=== PATIENT | female | born 1950 | race Caucasian/White ===

== ENCOUNTER 2018-07-30 06:50 | Day surgery (SDC) | payer OTHER ==
[~2018-07-30] VITALS: Ht 162.6 cm; Wt 100.8 kg
[~2018-07-30 06:50] MED LIST: ALBU90OI INH; ALBU90OI61 INH; ARIP15 PO; ASPI81EC PO; CEPH500 PO; CITRACAL-VIT D1 EAC1 PO; FISH OIL 500 M1 EAC2 PO; FISH1000 PO; HYDACE5 PO; HYDACE5325 PO; IBUP600 PO; Istalol2.5 ML BOTHEYES; LEVSOD100 PO; LORA1 PO; METCAR500 PO; PRAV10 PO; PRAV20 PO; THYROID; VITAMIN D31000 UNIT PO; WOMEN'S DAILY1 EAC3 PO; [UNRECOGNIZED DRUG - REMARK] PO
--- NOTE | 2018-07-30 08:22 | NUR ---
07/30/18 0822 Josee Mathias O2 10L VIA POM MASK
== END 2018-07-30 09:13 | disposition home or self-care (01) ==
LOC: ORSCSDS 06:50
PROVIDERS: Surgery
PROC: 0DBP8ZX Excision of Rectum, Via Natural or Artificial Opening Endoscopic, Diagnostic (ICD-10-PCS; principal; 2018-07-30 08:00)
PROC: 3E0H8GC Introduction of Other Therapeutic Substance into Lower GI, Via Natural or Artificial Opening Endoscopic (ICD-10-PCS; principal; 2018-07-30 08:00)
PROC: 0DBN8ZX Excision of Sigmoid Colon, Via Natural or Artificial Opening Endoscopic, Diagnostic (ICD-10-PCS; principal; 2018-07-30 08:00)
PROC: 0DB58ZX Excision of Esophagus, Via Natural or Artificial Opening Endoscopic, Diagnostic (ICD-10-PCS; principal; 2018-07-30 08:00)
DX: K22.70 Barrett's esophagus without dysplasia (principal); K21.9 Gastro-esophageal reflux disease without esophagitis; Z12.11 Encounter for screening for malignant neoplasm of colon; Z86.010 Personal history of colon polyps; K63.5 Polyp of colon; K62.1 Rectal polyp; K57.30 Diverticulosis of large intestine without perforation or abscess without bleeding; G47.33 Obstructive sleep apnea (adult) (pediatric); J45.909 Unspecified asthma, uncomplicated; E66.01 Morbid (severe) obesity due to excess calories; Z68.38 Body mass index [BMI] 38.0-38.9, adult; Z79.899 Other long term (current) drug therapy
CPT/HCPCS: 88305; J0461; J2250; J2405; J2704; J7120

== ENCOUNTER 2020-03-05 18:57 | Inpatient (IN) | payer OTHER ==
[~2020-03-05] VITALS: Ht 162.6 cm; Wt 110.0 kg
[~2020-03-05 18:57] MED LIST changes: +GLUC500 PO; +HYDROCODONE-AC1 EAC1 PO; +OMEP20ER PO
[2020-03-05 20:09] LABS: BASOPHILS ABSOLUTE AUTO 0.02 K/mm3 (0.00-0.23); BASOPHILS PERCENT AUTO 0 % (0-2); EOSINOPHILS PERCENT AUTO 0 % (0-6); Hematocrit 37.8 % (33.0-51.0); Hemoglobin 12.3 g/dL (11.5-16.0); IMMATURE GRAN ABSOLUTE AUTO 0.07 K/mm3 (0.00-0.10); IMMATURE GRAN PERCENT AUTO 0 % (0-1); LYMPHOCYTES ABSOLUTE AUTO 1.46 K/mm3 (0.84-5.20); LYMPHOCYTES PERCENT AUTO 9 % (21-46); MONOCYTES ABSOLUTE AUTO 0.96 K/mm3 (0.16-1.47); MONOCYTES PERCENT AUTO 6 % (4-13); Mean Corpuscular HGB 27.2 pg (26.0-34.0); Mean Corpuscular HGB Conc 32.5 g/dL (31.5-36.5); Mean Corpuscular Volume 84 fL (80-100); Mean Platelet Volume 10.2 fL (9.1-12.4); NEUTROPHILS ABSOLUTE AUTO 13.69 K/mm3 (1.96-9.15); NEUTROPHILS PERCENT AUTO 85 % (41-73); Platelet Count 239 K/mm3 (150-400); RDW Coefficient Variation 23.2 % (11.7-14.2); RDW Standard Deviation 67.7 fL (35.1-46.3); Red Blood Cell Count 4.52 M/mm3 (3.80-5.20)
[2020-03-05 20:23] LABS: Alanine Aminotransfer (ALT/SGP 61 U/L (12-78); Albumin, Blood 2.1 g/dL (3.4-5.0); Albumin/Globulin Ratio 0.5 (0.8-1.8); Alk Phos 231 U/L (50-136); Anion Gap 8 mmol/L (6-16); Aspartate Aminotrans (AST/SGOT 47 U/L (12-37); Bilirubin, Total 2.5 mg/dL (0.1-1.0); Blood Urea Nitrogen 14 mg/dL (8-24); Bun/Creatinine Ratio 11.8 (12.0-20.0); CO2, Blood 25 mmol/L (21-32); Calcium, Blood 7.3 mg/dL (8.5-10.1); Chloride, Blood 105 mmol/L (98-108); Creatinine, Blood 1.19 mg/dL (0.40-1.00); Glomerular Filtration Rate 48 (60-); Glucose, Blood 123 mg/dL (70-99); Potassium, Blood 3.9 mmol/L (3.5-5.5); Sodium, Blood 138 mmol/L (136-145); Total Protein, Blood 6.1 g/dL (6.4-8.2)
[2020-03-05 20:40] LABS: Magnesium, Blood 1.8 mg/dL (1.6-2.4); Troponin I <0.015 ng/mL (0.000-0.040)
[2020-03-05 20:49] LABS: Source, Urine Clean Catch
[2020-03-05 20:51] LABS: Bilirubin, Urine Neg (Neg); Blood, Urine 1+ (Neg); Glucose Qualitative, Urine Neg (Neg); Ketones, Urine 1+ (Neg); Leukocyte Esterase, Urine 3+ (Neg); Nitrite, Urine Neg (Neg); Protein, Urine Neg (Neg); Specific Gravity, Urine 1.015 (1.003-1.022); Urobilinogen, Urine 1+ (Normal)
[2020-03-05 20:57] LABS: Appearance, Urine Clear (Clear); Color, Urine Yellow (P-Yellow)
[2020-03-05 20:58] LABS: Bacteria Not Seen /hpf; Red Blood Cells, Urine Not Seen /hpf (0-2); Renal Epithelial Few /hpf (0-Rare); Squamous Epithelial Cells Few /hpf (Few); Transitional Epithelial Cells Few /hpf (0-Rare)
--- NOTE | 2020-03-06 01:00 | NUR ---
ASSUMED PT CARE FROM ED AT 0017 PT ARRIVED ON UNIT ALERT AND ORIENTED AND ABLE TO MAKE HER NEEDS KNOWN. CURRENTLY RECEIVING THIRD LITER OF LR AND CEFEPIME. PT APPEARS VERY LETHARGIC AND PALE. PT NOTED TO BE NSR WITH PVC'S; HR 90'S. BP'S STABLE WHILE RECEIVING FLUIDS; HOWEVER, ONCE STOPPED SBP NOTED TO DROP TO 90'S; WILL CONTINUE TO MONITOR. PT HAS SEVERE SWELLING TO BLE'S IN WHICH SHE STATES IS NOT NEW AND HAS BEEN THAT WAY SINCE HER PANCREAS SURGERY. PT IS CONTINENT OF BOWEL AND BLADDER; UTILIZES BED YOUSSEF. CALL LIGHT WITHIN REACH.
--- NOTE | 2020-03-06 01:56 | NUR ---
DR. ROWELL CALLED REGARDING LOW BP'S; NEW ORDERS TO START LEVOPHED PERIPHERALLY.
--- NOTE | 2020-03-06 06:26 | NUR ---
END OF SHIFT SUMMARY PT REMAINS ALERT AND ORIENTED AND ABLE TO MAKE NEEDS KNOWN. LEVOPHED CONTINUES TO INFUSE PERIPHERALLY THROUGH AN 18G TO LEFT AC REGION; CONTINUES WITH GOOD BLOOD RETURN. LR INFUSING VIA 20G LEFT AC AT 150MLS/HR. PT REMAINS CONTINENT AND IS ASSISTED WITH BEDPAN. PT C/O 4/10 HEADACHE PAIN; MEDICATED WITH FENTANYL PER ORDERS. PT RESTING COMFORTABLY WITH CALL LIGHT IN REACH. WILL CONTINUE TO MONITOR UNTIL REPORT IS HANDED OFF TO ONCOMING RN.
--- NOTE | 2020-03-06 07:15 | NUR ---
Assumed care of pt at 0700. Bedside report received from Deana TRAN. Pt A&O x 4. Answers questions. Follows commands. Verbalizes needs. Pt pleasant and cooperative with care. Lethargic. Repositions L/R with verbal cues and minimal assist. Pt has levophed at 10 mcg/min through peripheral IV. IV assessment WNL, draws back blood. Pt on room air. SpO2 90% or greater. SR per monitor. Pt has red coccyx with a stage 2 pressure ulcer. Site cleaned and dressed with pink foam dressing. Photographs obtained and placed in chart. Non blanchable redness noted to right heel. Protective mepilex placed.
[2020-03-06 07:23] LABS: BASOPHILS ABSOLUTE AUTO 0.03 K/mm3 (0.00-0.23); BASOPHILS PERCENT AUTO 0 % (0-2); EOSINOPHILS PERCENT AUTO 0 % (0-6); Hematocrit 30.9 % (33.0-51.0); Hemoglobin 10.3 g/dL (11.5-16.0); IMMATURE GRAN ABSOLUTE AUTO 0.08 K/mm3 (0.00-0.10); IMMATURE GRAN PERCENT AUTO 1 % (0-1); LYMPHOCYTES ABSOLUTE AUTO 1.83 K/mm3 (0.84-5.20); LYMPHOCYTES PERCENT AUTO 13 % (21-46); MONOCYTES ABSOLUTE AUTO 0.72 K/mm3 (0.16-1.47); MONOCYTES PERCENT AUTO 5 % (4-13); Mean Corpuscular HGB 27.6 pg (26.0-34.0); Mean Corpuscular HGB Conc 33.3 g/dL (31.5-36.5); Mean Corpuscular Volume 83 fL (80-100); Mean Platelet Volume 9.8 fL (9.1-12.4); NEUTROPHILS PERCENT AUTO 81 % (41-73); Platelet Count 193 K/mm3 (150-400); RDW Coefficient Variation 23.1 % (11.7-14.2); RDW Standard Deviation 67.1 fL (35.1-46.3); Red Blood Cell Count 3.73 M/mm3 (3.80-5.20); White Blood Cell Count 13.96 K/mm3 (4.00-11.30)
[2020-03-06 07:40] LABS: Albumin, Blood 1.4 g/dL (3.4-5.0); Albumin/Globulin Ratio 0.5 (0.8-1.8); Bilirubin, Total 2.6 mg/dL (0.1-1.0); Bun/Creatinine Ratio 13.3 (12.0-20.0); Calcium, Blood 6.7 mg/dL (8.5-10.1); Creatinine, Blood 1.05 mg/dL (0.40-1.00); Globulin, Blood 3.1 g/dL (2.2-4.0); Potassium, Blood 3.7 mmol/L (3.5-5.5); Total Protein, Blood 4.5 g/dL (6.4-8.2)
[2020-03-06 11:10] LABS: Source, Urine Catheter
[2020-03-06 11:20] LABS: Appearance, Urine Clear (Clear); Bilirubin, Urine Neg (Neg); Blood, Urine 3+ (Neg); Color, Urine Yellow (P-Yellow); Glucose Qualitative, Urine Neg (Neg); Ketones, Urine Neg (Neg); Leukocyte Esterase, Urine 3+ (Neg); Nitrite, Urine Neg (Neg); Protein, Urine Neg (Neg); Urobilinogen, Urine NORM (Normal)
--- NOTE | 2020-03-06 12:00 | NUR ---
Pt has PICC line to SHERLY for vasopressor administration. Levophed now 15 mcg/min. Dr Jung and Dr Rose in to see pt. Discussed increased vasopressor requirement. High catheter placed for strict measurement of I&O. CT scan done and resulted. New orders placed by Dr Rose for lovenox.
[2020-03-06 12:04] LABS: Bacteria Few /hpf; Renal Epithelial Few /hpf (0-Rare); Squamous Epithelial Cells Few /hpf (Few); Transitional Epithelial Cells Mod /hpf (0-Rare)
--- NOTE | 2020-03-06 17:00 | NUR ---
Calf cirumference measurement: L- 15.5 inches R- 14.5 inches Pt was laying on left side, so left leg may be larger due to dependent edema.
--- NOTE | 2020-03-06 17:47 | NUR ---
Echocardiogram completed.
--- NOTE | 2020-03-06 18:44 | NUR ---
SUMMARY Pt remains A&O x 4, but lethargic. Pt did not get OOB this shift. Pt's granddaughter visited briefly, she was updated on plan of care by Dr Rose. Pt on room air. SpO2 90% or greater. Lungs clear t/o. SR per monitor with episodes of tachycardia that last 10-15 seconds and resolve spontaneously. Dr Rose aware. Echocardiogram obtained. Levophed at 15 mcg/min. Attempted to titrated down to 13 mcg/min but this resulted in unacceptable BP. PICC line new this shift. High catheter placed for strict measurement of I&O. DIONNA hose ordered but did not place because pt is highly sensitive to pressure injury and has a stage one pressure ulcer to R heel.
--- NOTE | 2020-03-06 19:18 | NUR ---
ASSUMED PT CARE FROM CHELSEA STANFORD PT SLEEPING IN BED, EASILY AROUSABLE; ABLE TO MAKE NEEDS KNOWN. LEVOPHED INFUSING AT 15MCG/MIN, AND LR AT 150MLS/HR. MEDINA CATHETER IS PATENT AND DRAINING DARK, YELLOW URINE TO GRAVITY. CALL LIGHT WITHIN REACH; PT ABLE TO MAKE HER NEEDS KNOWN.
--- NOTE | 2020-03-06 20:50 | NUR ---
DR. JENSEN CALL PLACED REGARDING LEVOPHED AT 17MCG/MIN WITH SBP 90'S; NEW ORDERS FOR VASOPRESSIN. ALSO REQUESTED ANTIFUNGAL CREAM FOR REDNESS TO SAMANTA/ANAL AREA.
--- NOTE | 2020-03-06 22:46 | NUR ---
REASSESSMENT PT CONTINUES TO ASK FOR BEDPAN. THIRD LARGE CARRILLO/LAMBERT STOOL NOTED THIS SHIFT. C/O NAUSEA; MEDICATED WITH ZOFRAN PER ORDERS. PT STATES SHE DOESN'T FEEL GOOD. ASKED IF SHE GENERALLY POOPS THIS MUCH HOME, PT STATED "NO". RHYTHM CHANGE NOTED AT APPROXIMATELY 2200; OBTAINED EKG. EKG SHOWING SINUS ARRHYTHMIA; HOWEVER, DIFFICULT TO DISTINGUISH WAP D/T PT NOT HOLDING COMPLETELY STILL. P WAVES APPEAR DIFFERENT AT TIMES; WILL CONTINUE TO MONITOR. HR WAS LOW 42; HOWEVER, FLUCTUATES AND INCREASES UP TO 110.
--- NOTE | 2020-03-07 04:40 | NUR ---
END OF SHIFT SUMMARY PT HAS REMAINED ON LEVOPHED T/O SHIFT; CURRENTLY AT 12MCG/MIN. VASOPRESSIN CURRENTLY TITRATED OFF; HOWEVER, WAS ALSO ON VASOPRESSIN FOR MAJORITY OF SHIFT WELL. LR INFUSING AT 150MLS/HR. PICC TO RIGHT UPPER ARM. PT NOTED TO HAVE FREQUENT BOWEL MOVEMENTS THIS SHIFT; ALL DIFFERENT COLORS, TEXTURES, AND SMELLS. BOWEL TONES WERE HYPOACTIVE AT START OF SHIFT, BECAME TYMPANIC, AND ARE NOW HYPERACTIVE. PT WAS CONTINENT FOR ALL OF THEM EXCEPT THE LAST ONE. SAMANTA CARE AND SKIN CARE GIVEN WITH EACH BM. PT IS VERY TENDER AND SENSITIVE TO THE TOUCH. SHE C/O BARRIER CREAM BURNING; THEREFORE, CLEANSED OFF AND APPLIED ANTIFUNGAL CREAM INSTEAD PER ORDERS. RED AREA IS APPEARING RECREATION PROFESSOR IN COLOR TO PERIANAL AREA. MEPITEL REMAINS IN PLACE TO COCCYX R/T OPEN AREA AND SURROUNDING RED/HIGH RISK AREAS. C/O OVERALL "NOT FEELING WELL". WAS NAUSEAS X1 THIS SHIFT; MEDICATED WITH ZOFRAN. VSS, SEE FLOWSHEET. PT NOTED TO HAVE A RHYTHM CHANGE AND WAS BRADYCARDIC WITH HR 30-40'S; ASYMPTOMATIC; HOWEVER, EKG OBTAINED SHOWING SINUS ARRHYTHMIA. HOWEVER, ONCE PT WAS SLEEPING AND NOT MOVING; CARDIAC MONITORED SHOWED WANDERING ATRIAL PACEMAKER; THEREFORE, STRIP OBTAINED AND PLACED IN CHART. RHYTHM REMAINS IRREGULAR WITH NOTED WANDERING ATRIAL PACEMAKER. RATE VARIES FROM 40-90'S. PT CONTINUES TO APPEAR PALE AND DUSKY IN COLOR. DEEP PITTING EDEMA TO LLE AND +3 TO RLE. HEEL PROTECTOR IN PLACE TO RIGHT HEEL; HOWEVER, PT HELPS REPOSITION WITH HER LEFT; THEREFORE, PROTECTOR ROLLED OFF. HEELS ARE FLOATED ON A PILLOW. PT HAS REMAINED ON ROOM AIR WITH A COUPLE EPISODES OF SPO2 DROPPING TO 85%; HOWEVER, PT RECOVERS QUICKLY AND NO OXYGEN WAS NEEDED. PT REMAINS LETHARGIC AND DROWSY. WILL CONTINUE TO MONITOR UNTIL REPORT IS HANDED OFF TO ONCOMING RN.
[2020-03-07 06:46] LABS: BASOPHILS ABSOLUTE AUTO 0.02 K/mm3 (0.00-0.23); BASOPHILS PERCENT AUTO 0 % (0-2); EOSINOPHILS ABSOLUTE AUTO 0.02 K/mm3 (0.00-0.68); EOSINOPHILS PERCENT AUTO 0 % (0-6); Hematocrit 28.5 % (33.0-51.0); Hemoglobin 9.5 g/dL (11.5-16.0); IMMATURE GRAN ABSOLUTE AUTO 0.04 K/mm3 (0.00-0.10); IMMATURE GRAN PERCENT AUTO 0 % (0-1); LYMPHOCYTES ABSOLUTE AUTO 2.37 K/mm3 (0.84-5.20); LYMPHOCYTES PERCENT AUTO 26 % (21-46); MONOCYTES ABSOLUTE AUTO 0.61 K/mm3 (0.16-1.47); MONOCYTES PERCENT AUTO 7 % (4-13); Mean Corpuscular HGB 27.5 pg (26.0-34.0); Mean Corpuscular HGB Conc 33.3 g/dL (31.5-36.5); Mean Corpuscular Volume 83 fL (80-100); NEUTROPHILS ABSOLUTE AUTO 6.19 K/mm3 (1.96-9.15); NEUTROPHILS PERCENT AUTO 67 % (41-73); Platelet Count 180 K/mm3 (150-400); RDW Coefficient Variation 23.5 % (11.7-14.2); RDW Standard Deviation 67.7 fL (35.1-46.3); Red Blood Cell Count 3.45 M/mm3 (3.80-5.20); White Blood Cell Count 9.25 K/mm3 (4.00-11.30)
[2020-03-07 06:54] LABS: Alanine Aminotransfer (ALT/SGP 42 U/L (12-78); Albumin, Blood 1.3 g/dL (3.4-5.0); Albumin/Globulin Ratio 0.5 (0.8-1.8); Alk Phos 163 U/L (50-136); Anion Gap 8 mmol/L (6-16); Aspartate Aminotrans (AST/SGOT 42 U/L (12-37); Bilirubin, Total 2.2 mg/dL (0.1-1.0); Blood Urea Nitrogen 12 mg/dL (8-24); CO2, Blood 25 mmol/L (21-32); Calcium, Blood 6.7 mg/dL (8.5-10.1); Chloride, Blood 110 mmol/L (98-108); Creatinine, Blood 0.92 mg/dL (0.40-1.00); Globulin, Blood 2.7 g/dL (2.2-4.0); Glomerular Filtration Rate >60 (60-); Glucose, Blood 220 mg/dL (70-99); Potassium, Blood 3.3 mmol/L (3.5-5.5); Sodium, Blood 143 mmol/L (136-145)
[2020-03-07 09:06] LABS: Free Thyroxine 1.03 ng/dL (0.70-1.60)
[2020-03-07 09:11] LABS: Triiodothyronine, Free <0.50 pg/mL (2.18-3.98)
--- NOTE | 2020-03-07 09:49 | NUR ---
ASSUMED CARE OF PT, REPORT RCV'D FROM CHELSEA TEIXEIRA. PT ALERT AND ORIENTED WITH SHORT PERIODS OF CONFUSION. PT FORGETS WHY SHE IS IN THE HOSPITAL AND NEEDS TO BE REORIENTED. PT COMPLAINS OF NAUSEA, REFUSES BREAKFAST AND PO MEDICATIONS AT THIS TIME. PT MEDICATED WITH ZOFRAN WITH MODERATE IMPROVEMENT IN NAUSEA. PT HAD VENOUS DUPLEX SCAN THIS AM, POSITIVE FOR DVTX2 RLE. CALL TO DR. Monico REDDY TO REPORT FINDINGS. PT REMAINS ON LEVOPHED 5MCG/MIN, VASOPRESSIN @ 0.04 UNITS/MIN. BP STABLE AT THIS TIME. LUNG SOUNDS CLEAR, PT REMAINS ON 2L NC D/T OCCASIONAL DESATS WHILE SLEEPING. TEMP MEDINA PATENT AND DRAINING TO GRAVITY. MEPITEL TO COCCYX, CHANGED ON NOC SHIFT, RIGHT HEEL PROTECTOR IN PLACE. REPOSITIONING Q2 AND PRN TO MINIMIZE PRESSURE ON COCCYX. SEE FULL SHIFT ASSESSMENT,
--- NOTE | 2020-03-07 14:08 | NUR ---
MIDSHIFT ASSESSMENT PT FEELING MUCH BETTER THIS AFTERNOON. PT ATE MOST OF LUNCH AND HAS BEEN EATING SNACKS. PT SITTING UP IN BED, NO EVIDENCE OF CONTINUED CONFUSION. PT'S GRANDDAUGHTER UPDATED WITH PT'S STATUS AND PLAN OF CARE. VASOPRESSIN ON STANDBY, LEVOPHED @ 11 MCG/MIN TO MAINTAIN MAP>60.
--- NOTE | 2020-03-07 17:33 | NUR ---
SHIFT SUMMARY PT ALERT AND ORIENTED, PT'S MENTATION MUCH IMPROVED THIS AFTERNOON. PT PLEASANT AND COOPERATIVE WITH NO PERIODS OF CONFUSION. PT HAS HAD INCREASED APPETITE EATING LUNCH, DINNER, AND SNACKS. NO ADDITIONAL BOUTS OF NAUSEA. VASOPRESSIN ON STANDBY SINCE THIS MORNING. LEVOPHED PLACED ON STANDBY AT 1700, MAP REMAINS GREATER THAN 60 (GOAL). PT ABLE TO ASSIST WITH REPOSITIONING AND ABLE TO TURN WELL SO THAT HER COCCYX COULD BE EXAMINED AND FUNGAL CREAM APPLIED. 600 ML DARK AYAN URINARY OUTPUT FROM MEDINA. PT AFEBRILE T/O SHIFT, HR 50-80'S. WILL REPORT TO ONCOMING NURSE.
--- NOTE | 2020-03-07 19:26 | NUR ---
ASSUMED PT CARE FROM GEORGINA RN AT 1915 PT SLEEPING IN BED, BUT EASILY AROUSABLE. LEVOPHED INFUSING AT 2MCG/MIN VIA PICC LINE TO RIGHT UPPER ARM. SBP 70'S AND MAP <60; INCREASED LEVOPHED TO 6MCG/MIN. LR INFUSING TKO. CALL LIGHT WITHIN REACH; REFER TO SHIFT SUMMARY FOR FULL HEAD TO TOE ASSESSMENT.
[2020-03-08 04:26] LABS: BASOPHILS ABSOLUTE AUTO 0.02 K/mm3 (0.00-0.23); BASOPHILS PERCENT AUTO 0 % (0-2); EOSINOPHILS ABSOLUTE AUTO 0.04 K/mm3 (0.00-0.68); EOSINOPHILS PERCENT AUTO 0 % (0-6); Hematocrit 27.3 % (33.0-51.0); Hemoglobin 8.9 g/dL (11.5-16.0); IMMATURE GRAN ABSOLUTE AUTO 0.04 K/mm3 (0.00-0.10); IMMATURE GRAN PERCENT AUTO 0 % (0-1); LYMPHOCYTES ABSOLUTE AUTO 2.82 K/mm3 (0.84-5.20); LYMPHOCYTES PERCENT AUTO 30 % (21-46); MONOCYTES ABSOLUTE AUTO 0.54 K/mm3 (0.16-1.47); MONOCYTES PERCENT AUTO 6 % (4-13); Mean Corpuscular HGB Conc 32.6 g/dL (31.5-36.5); Mean Corpuscular Volume 83 fL (80-100); Mean Platelet Volume 10.3 fL (9.1-12.4); NEUTROPHILS ABSOLUTE AUTO 5.96 K/mm3 (1.96-9.15); NEUTROPHILS PERCENT AUTO 63 % (41-73); Platelet Count 166 K/mm3 (150-400); RDW Coefficient Variation 23.6 % (11.7-14.2); RDW Standard Deviation 68.9 fL (35.1-46.3); White Blood Cell Count 9.42 K/mm3 (4.00-11.30)
[2020-03-08 04:41] LABS: Anion Gap 5 mmol/L (6-16); Blood Urea Nitrogen 9 mg/dL (8-24); Bun/Creatinine Ratio 10.4 (12.0-20.0); CO2, Blood 28 mmol/L (21-32); Chloride, Blood 112 mmol/L (98-108); Creatinine, Blood 0.86 mg/dL (0.40-1.00); Glomerular Filtration Rate >60 (60-); Glucose, Blood 175 mg/dL (70-99); Sodium, Blood 145 mmol/L (136-145)
--- NOTE | 2020-03-08 04:58 | NUR ---
END OF SHIFT SUMMARY LEVOPHED REMAINS INFUSING AT 8MCG/MIN. VASOPRESSIN REMAINS OFF. LR TKO. PT REMAINS ALERT AND ORIENTED AND ABLE TO MAKE NEEDS KNOWN. HAS HAD TWO LOOSE BM'S THIS SHIFT; GREEN AND SEEDY. STOOL SAMPLE SENT TO RULE OUT C.DIFF PER ORDERS, WHICH RETURNED NEGATIVE. NO GI PANEL'S AVAILABLE PER ORIGINAL ORDER; THEREFORE, RE-ENTERED FOR C.DIFF. MOISTURE ASSOCIATED SKIN DAMAGE TO BUTTOCKS REMAINS RED AND AGITATED. PINPOINT OPEN AREA TO COCCYX IS HEALING ADEQUATELY AND WOUND BED IS PINK IN COLOR. ANTIFUNGAL CREAM TO PERIANAL RED AREA'S. PT HAS BEEN CONTINENT OF BOWEL UP UNTIL HER LAST BM. HOWEVER, SHE WAS ABLE TO UTILIZE THE CALL LIGHT ADEQUATELY TO REQUEST TO BE CLEANED UP. PT REPOSITIONED EVERY 2 HOURS TO OFFLOAD PRESSURE FROM COCCYX. WILL CONTINUE TO MONITOR UNTIL REPORT IS HANDED OFF TO ONCOMING RN.
[2020-03-08 09:32] LABS: Vancomycin, Trough 10.2 ug/mL (5.0-10.0)
--- NOTE | 2020-03-08 11:18 | NUR ---
BEDSIDE REPORT TAKEN AT 0715. PT AWAKE IN BED, ALERT AND AWAKE, OCCASSIONALLY FORGETFUL. PT HAD LEVOPHED AT 10MCG WHICH WAS TURNED DOWN TO 8MCG AT 0800. WILL CONTINUE TO TITARTE DOWN TOLERATED. MAP >60. MIDODRINE 10MG PO Q4. PT INITIALLY DENIED PAIN BUT THEN C/O PAIN 10/22 TO PUBIS RADIATING TO RIGHT HIP. FENT 25MCG GIVEN; PT STATES SHE IS STILL UNCOMFORTABLE; WILL CALL . K+ 40MEQ INFUSING; REPEAT LABS AT 1400. PT HAS BEEN INCONTINENT OF LIQUID/SOFT STOOL FREQUENTLY THIS AM. THERE IS SOME UNDIGESTED FOOD MATTER IN STOOL WELL. STOOL SAMPLE SENT.
--- NOTE | 2020-03-08 13:04 | NUR ---
pt sitiing up eating lunch. Affect bright, Review of her comfort and ability. Pt denies headaches, or difficulty swallowing. She does not have shorntess of breath or vintilatory stress. She denies nausea, she has chronic pain and difficlty seeping soundly. Review of medications for comfort and sleep hygience. Pt juancarlos coming in this afternoon to review advance directive and POA information suggest we review a polst also for this patient. Will follow up on needs.
[2020-03-08 14:33] LABS: Albumin, Blood 1.8 g/dL (3.4-5.0); Anion Gap 8 mmol/L (6-16); Blood Urea Nitrogen 8 mg/dL (8-24); Bun/Creatinine Ratio 10.1 (12.0-20.0); CO2, Blood 25 mmol/L (21-32); Calcium, Blood 6.8 mg/dL (8.5-10.1); Chloride, Blood 111 mmol/L (98-108); Creatinine, Blood 0.79 mg/dL (0.40-1.00); Glomerular Filtration Rate >60 (60-); Glucose, Blood 237 mg/dL (70-99); Magnesium, Blood 1.6 mg/dL (1.6-2.4); Phosphorus, Blood 1.1 mg/dL (2.5-4.9); Potassium, Blood 3.5 mmol/L (3.5-5.5); Sodium, Blood 144 mmol/L (136-145)
--- NOTE | 2020-03-08 15:50 | NUR ---
[address] BRUNER. NS STARTED AT 100CC/HR. PT HAS NOPT TAKEN MUCH IN FOR PO FLUIDS AND CONT TO HAVE LOOSE STOOLS. PERCOCET ADDED FOR PAIN RELIEF. PHOS 1.1; KPHOS 20MMOL ORDERED.
--- NOTE | 2020-03-08 17:24 | NUR ---
Spiritual care note: Per admit trigger, I met with Mrs. Warren to offer education about ACP. She tells me that she has a completed advanced directive at home naming her grand-daughter as MPOA. She states that she will have her grand-daughter bring it in. Mrs. Warren feels hopeful for recovery and denied needs. I will remain available.
--- NOTE | 2020-03-08 18:52 | NUR ---
PT STATED THAT PERCOCET HELPED WELL W HER PAIN. STATES PAIN 02/21. PT HAS IMPROVED APPETITE T/O SHIFT. LEVOPHED REMAINS AT 8MCG W MAP >65; PT REMAINS HYPOTENSIVE. NS INFUSING AT 100CC/HR. KPHOS AND MAG INFUSING.
--- NOTE | 2020-03-08 21:42 | NUR ---
SHIFT ASSESSMENT ASSUMED CARE OF PT @ 1900. RECV'D REPORT FROM ESTRELLA TRAN. PT ALERT AND ORIENTED, SITTING IN BED CHATTING WITH INDUSTRIAL MANUFACTURING TECHNICIAN. ESTRELLA INFORMED ME OF PT BEING FORGETFUL AT TIMES, PT ADMITTED TO THIS. LEVOPHED @ 8MCG c MAP >65, WILL TITRATE PER ORDER. PT C/O PELVIC/ HIP PAIN TO THE R HIP, 10 DURING ASSESSMENT, SHIFTED HIPS IN BED ALONG WITH PRN FENTANYL WITH MINIMAL RELIEF. MEDINA CATH PATENT, DRAINING YELLOW URINE. NO OTHER COMPLAINTS AT THIS TIME, WILL CONTINUE TO MONITOR.
--- NOTE | 2020-03-09 02:00 | NUR ---
UPDATE PT HAD A SHORT RUN OF TACHYCARDIA (SEE STRIP IN CHART). THIS NURSE WAS IN THE ROOM WITH THE PT AT THE TIME. PT DENIED SHOB, CP, DIZZINESS, OR INCREASED WEAKNESS. RYTHM CONVERTED BACK TO NSR. DISCUSSED WITH CHARGE NURSE. WILL CONTINUE TO MONITOR AND TREAT APPROPRIATELY.
[2020-03-09 03:16] LABS: BASOPHILS ABSOLUTE AUTO 0.02 K/mm3 (0.00-0.23); BASOPHILS PERCENT AUTO 0 % (0-2); EOSINOPHILS ABSOLUTE AUTO 0.04 K/mm3 (0.00-0.68); EOSINOPHILS PERCENT AUTO 1 % (0-6); Hematocrit 24.8 % (33.0-51.0); IMMATURE GRAN ABSOLUTE AUTO 0.04 K/mm3 (0.00-0.10); IMMATURE GRAN PERCENT AUTO 1 % (0-1); LYMPHOCYTES ABSOLUTE AUTO 2.03 K/mm3 (0.84-5.20); LYMPHOCYTES PERCENT AUTO 30 % (21-46); MONOCYTES ABSOLUTE AUTO 0.35 K/mm3 (0.16-1.47); MONOCYTES PERCENT AUTO 5 % (4-13); Mean Corpuscular HGB 27.5 pg (26.0-34.0); Mean Corpuscular HGB Conc 32.3 g/dL (31.5-36.5); Mean Corpuscular Volume 85 fL (80-100); Mean Platelet Volume 10.5 fL (9.1-12.4); NEUTROPHILS ABSOLUTE AUTO 4.22 K/mm3 (1.96-9.15); NEUTROPHILS PERCENT AUTO 63 % (41-73); NRBC ABSOLUTE 0.02 K/mm3 (0.00-0.02); NRBC Auto 0.3 /100 WBC (0.0-0.2); Platelet Count 146 K/mm3 (150-400); RDW Coefficient Variation 24.5 % (11.7-14.2); RDW Standard Deviation 73.4 fL (35.1-46.3); Red Blood Cell Count 2.91 M/mm3 (3.80-5.20)
[2020-03-09 03:32] LABS: Albumin, Blood 1.7 g/dL (3.4-5.0); Anion Gap 8 mmol/L (6-16); Blood Urea Nitrogen 8 mg/dL (8-24); Bun/Creatinine Ratio 10.9 (12.0-20.0); CO2, Blood 23 mmol/L (21-32); Calcium, Blood 6.5 mg/dL (8.5-10.1); Chloride, Blood 109 mmol/L (98-108); Creatinine, Blood 0.73 mg/dL (0.40-1.00); Glomerular Filtration Rate >60 (60-); Glucose, Blood 172 mg/dL (70-99); Magnesium, Blood 1.6 mg/dL (1.6-2.4); Phosphorus, Blood 1.7 mg/dL (2.5-4.9); Potassium, Blood 3.6 mmol/L (3.5-5.5); Sodium, Blood 140 mmol/L (136-145)
--- NOTE | 2020-03-09 04:30 | NUR ---
UPDATE CALLED DR ROWELL REGARDING PTS CHANGE IN CARDIAC RYTHM, EKG PERFORMED (SEE CHART). PT CONTINUED TO BE TACHYCARDIC, PER DR ORDER PT RECEIVED 500ML NS BOLUS, KPHOS, AND TO CONTINUE TITRATING LEVOPHED TO MAINTAIN MAP >60. WILL CONTINUE TO MONITOR.
--- NOTE | 2020-03-09 05:44 | NUR ---
UPDATE POST BOLUS PT CONTINUES TO BE TACHYCARDIC. DISCUSSED c DR ROWELL, ONE TIME DOZE OF CARDIZEM TO BE ADMINISTERED. WILL CONTINUE TO MONITOR.
--- NOTE | 2020-03-09 07:06 | NUR ---
SHIFT SUMMARY PT REMAINS ALERT AND ORIENTED, OCCASIONALLY REPEATS HERSELF DURING TURNS. TACHYCARDIA CURRENTLY CONTROLLED WITH ONE TIME DOSE OF CARDIZEM. LEVOPHED @ 11MCG c MAP >65. PT MEDICATED c PRN PAIN MEDICATIONS FOR PELVIC PAIN. NO BM THIS SHIFT. MEDINA CATH DRAINING YELLOW URINE. NO OTHER SIGNIFICANT CHANGES THIS SHIFT. WILL CONTINUE TO MONITOR, REPORT TO ONCOMING NURSE.
--- NOTE | 2020-03-09 07:51 | NUR ---
PT VERY RESTLESS AND SOMEWHAT IRRITABLE IN BED. PT DID NOT SLEEP WELL LAST NIGHT PER NIGHT RN. PT STATES SHE CANT GET INTO A COMFORTABLE POSITION. PT C/O VARYING PAIN TO BILAT HIPS AND PELVIS. 20MMOL KPHOS INFUSING NOW. NS AT 100CC/HR. LEVOPHED GTT AT 11MCG. PT REMAINS HYPOTENSIVE W MAP >65. PT HT RHTHYM IN A FIB W RATE 130-159.
--- NOTE | 2020-03-09 08:10 | NUR ---
DR AGUAYO CALLED AND GIVEN UPDATE. HR NOW BETWEEN 130-180. DR AGUAYO WILL SEE PT SHORTLY.
--- NOTE | 2020-03-09 08:33 | NUR ---
DR AGUAYO AND DR JENSEN AT BEDSIDE. FENT 25MCG GIVEN FOR 10/10 PAIN TO HIPS. TOTADOL ORDERED. DIG LEVEL ORDERED. PT TO RECEIVE DOSE OF CARDIZEM FOR AFIB W RVR.
--- NOTE | 2020-03-09 09:03 | NUR ---
PT WAS GIVEN CARDIZEM 10MG IVP PER DR AGUAYO. PT CONVERTED TO SINUS RHTHYM WITHIN 5MIN. BP DID DROP, LEVOPHED INCREASED TO 15MCG
[2020-03-09 09:31] LABS: Vancomycin, Trough 12.3 ug/mL (5.0-10.0)
[2020-03-09 09:53] LABS: Digoxin (Lanoxin) <0.06 ug/mL (0.80-2.00)
--- NOTE | 2020-03-09 10:46 | NUR ---
PT IN PAROXYSMAL AFIB. PT IN AFIB NOW W RATE 90-150. LEVOPHED REMAINS AT 15MCG. PT PALE AND DIAPHORETIC. PT STATES PAIN HAS IMPROVED BUT IS STILL THERE. PT REMAINS RESTLESS IN BED. PALLIATIVE CARE GIVEN UPDATE. PT'S GRANDDAUGHTER UPDATED PER PT REQUEST. DR AGUAYO CALLED AND UPDATED; DIG TO BE ORDERED.
[2020-03-09 12:26] LABS: PCO2 Venous 20.3 mmHg (38-42); pH Blood Venous 7.07 (7.34-7.37)
[2020-03-09 12:27] LABS: Base Excess Venous -24.3 mmol/L; Bicarbonate Venous 7.7 mmol/L (24.0-30.0)
[2020-03-09 12:28] LABS: PO2 Venous 72.8 mmHg (38-42)
[2020-03-09 13:51] LABS: Mean Corpuscular HGB Conc 30.5 g/dL (31.5-36.5); Mean Platelet Volume 10.7 fL (9.1-12.4); NRBC ABSOLUTE 0.07 K/mm3 (0.00-0.02); NRBC Auto 0.8 /100 WBC (0.0-0.2); Platelet Count 112 K/mm3 (150-400); RDW Standard Deviation 77.6 fL (35.1-46.3); Red Blood Cell Count 2.07 M/mm3 (3.80-5.20); White Blood Cell Count 8.88 K/mm3 (4.00-11.30)
--- NOTE | 2020-03-09 14:09 | NUR ---
Called to assist with family pt worsening and intesisvist at bedside. Brief careful discussionfrom physician that this event may not be survivable and review of recusitation. Family at bedside pt stat medication and cardioversion. Called in her other dsughter to be at bedside and reviewed severity of her condition.
[2020-03-09 14:14] LABS: Mean Corpuscular Volume 92 fL (80-100)
[2020-03-09 14:16] LABS: Hemoglobin 5.8 g/dL (11.5-16.0)
[2020-03-09 14:22] LABS: Base Excess Venous -24.2 mmol/L; Bicarbonate Venous 7.6 mmol/L (24.0-30.0); PCO2 Venous 33.4 mmHg (38-42); PO2 Venous 53.4 mmHg (38-42); pH Blood Venous 6.97 (7.34-7.37)
[2020-03-09 14:53] LABS: BAND PERCENT MAN 1 % (0-8); BASOPHILS PERCENT MAN 0 % (0-2); EOSINOPHILS PERCENT MAN 0 % (0-6); LYMPHOCYTES ABSOLUTE MAN 0.71 K/mm3 (0.84-5.20); LYMPHOCYTES PERCENT MAN 8 % (21-46); MONOCYTES ABSOLUTE MAN 0.26 K/mm3 (0.16-1.47); MONOCYTES PERCENT MAN 3 % (4-13); SEG NEUTROPHILS PERCENT MAN 88 % (41-73); TOTAL CELLS COUNTED 100
--- NOTE | 2020-03-09 16:20 | NUR ---
Further discussion with family and support pt placed on Ventilator. Review of prognsosis. Pt being transfussed and settled family went home due to bad weather. Review of haw gravely ill she is and possible prognosis
[2020-03-09 16:39] LABS: BASOPHILS ABSOLUTE AUTO 0.02 K/mm3 (0.00-0.23); BASOPHILS PERCENT AUTO 0 % (0-2); EOSINOPHILS ABSOLUTE AUTO 0.01 K/mm3 (0.00-0.68); EOSINOPHILS PERCENT AUTO 0 % (0-6); Hematocrit 31.7 % (33.0-51.0); Hemoglobin 9.5 g/dL (11.5-16.0); IMMATURE GRAN ABSOLUTE AUTO 0.51 K/mm3 (0.00-0.10); IMMATURE GRAN PERCENT AUTO 4 % (0-1); LYMPHOCYTES ABSOLUTE AUTO 2.21 K/mm3 (0.84-5.20); LYMPHOCYTES PERCENT AUTO 16 % (21-46); MONOCYTES PERCENT AUTO 5 % (4-13); Mean Corpuscular HGB 28.2 pg (26.0-34.0); Mean Corpuscular Volume 94 fL (80-100); Mean Platelet Volume 10.6 fL (9.1-12.4); NEUTROPHILS ABSOLUTE AUTO 10.19 K/mm3 (1.96-9.15); NEUTROPHILS PERCENT AUTO 75 % (41-73); NRBC ABSOLUTE 0.15 K/mm3 (0.00-0.02); NRBC Auto 1.1 /100 WBC (0.0-0.2); Platelet Count 105 K/mm3 (150-400); RDW Coefficient Variation 19.1 % (11.7-14.2); RDW Standard Deviation 65.7 fL (35.1-46.3); Red Blood Cell Count 3.37 M/mm3 (3.80-5.20); White Blood Cell Count 13.64 K/mm3 (4.00-11.30)
[2020-03-09 17:16] LABS: Albumin, Blood 1.5 g/dL (3.4-5.0); Albumin/Globulin Ratio 0.6 (0.8-1.8); Bilirubin, Total 2.9 mg/dL (0.1-1.0); Calcium, Blood 6.3 mg/dL (8.5-10.1); Globulin, Blood 2.4 g/dL (2.2-4.0); Phosphorus, Blood 5.7 mg/dL (2.5-4.9); Potassium, Blood 3.7 mmol/L (3.5-5.5); Total Protein, Blood 3.9 g/dL (6.4-8.2)
--- NOTE | 2020-03-09 17:39 | NUR ---
Spiritual care note: Numerous visits with family throughout the day. T/C grand-daughter to inform of pt's decline. She arrived quite tearful. Pt's long-time SO, Mathew, also arrived. I stayed with family throughout numerous interventions, providing prayer, comfort, and affirmation of obvious love. Family wants to "keep fighting" until they have some answers. I will continue to monitor.
[2020-03-09 17:52] LABS: Base Excess Venous -22.2 mmol/L; PCO2 Venous 32.9 mmHg (38-42); PO2 Venous 59.6 mmHg (38-42)
[2020-03-09 17:53] LABS: pH Blood Venous 7.03 (7.34-7.37)
--- NOTE | 2020-03-09 19:30 | NUR ---
ASSUMING PT CARE: PT INTUBATED, SEDATED. VENT: AC: 20/325, 5/40%. GTTs: PROPOFOL 30mcg/kg/min, VASOPRESSIN 0.04u/min, LEVOPHED 30mcg/min, AMNIODARONE 1mg/min, BICARB 100ml/hr. DR LEBRON @ BEDSIDE, PLACING DIALYSIS CATH. PT UNRESPONSIVE TO NOXIOUS STIMULI. UNABLE TO FOLLOW ANY COMMANDS. MONITOR INDICATES A NSR, HR 70s, SBP 90s-70s. PT NOTABLY EDEMETOUS W/ SM AMT OF WEEPING TO PUNCTURE SITES & WOUNDS. PLAN FOR CXR CONFIRMATION & TO BEGIN DIALYSIS SHORTLY. BARRY @ BEDSIDE TO ASSESS PT & PLACE LAB ORDERS. WILL CONTINUE TO MONITOR & REPORT APPROPRIATE.
--- NOTE | 2020-03-09 19:52 | NUR ---
DIGOXIN GIVEN AT 1127. SHORTLY AFTER PT STATED THAT SHE FELT LIKE EATING SOME LUNCH. SHORTLY AFTER LUNCH ARRIVED AROUND 1210 PT'S BP DROPPED TO 51/35, PT REMAINED IN AFIB W RATE 130'S. PT VERY PALE AND DIAPHORETIC. PT RESTLESS WITH C/O SOME SOB AND LOWER ABD/LEG PAIN. LEVOPHED INCREASED TO 20MCG, VASOPRESSIN ORDERED AND STARTED AT 1218 (O.04UNITS). O2 PLACED AT 6L VIA N/C. DR AGUAYO AND DR JENSEN CALLED. DR JENSEN AT BEDSIDE SHORTLY AFTER BEING NOTIFIED OF PT'S CONDITION. DR LEBRON CONSULTED AND WAS AT BEDSIDE AROUND 1220. FAMILY CALLED AND WHERE AT BEDSIDE PRIOR TO INTUBATION; PALLIATIVE CARE AND PASTORAL CARE AT BEDSIDE W FAMILY. BIPAP ATTEMPTED FOR SHORT PERIOD BEFORE PT REQUIRED INTUBATION. 4AMPS (50MEQ EACH) OF SODIUM BICARB GIVEN PUSH PER DR LEBRON. FIRST TWO DOSES WHERE TAKEN FROM CRASH CART. CARDIOVERSION WAS ATTEMPTED AT 1330 @ 120J; THIS WAS UNSUCCESSFUL. PT INTUBATED AT 1442. FENTANYL 50MCG, VERSED 2MG, AND HERMINIO 20 WAS USED FOR INTUBATION. PROPOFOL WAS STARTED AFTER INTUBATION AT 10MCG AND HAS BEEN TITRATED UP TO 30MCG. BICARB GTT W 3AMPS IS RUNNING AT 100CC/HR. PT WAS GIVEN AMIO BOLUS FOLLOWED BY GTT; PT DID CONVERT TO SINUS RHYTHM AFTER BOLUS. PT WAS TRANSFUSED 2 UNITS PRBC'S W/O ANY ADVERSE REACTIONS; PT'S BP RESPONDED WELL TO THE TRANSFUSION. PT HAD SEVERAL CRITICAL LABS T/O THE SHIFT; ALL WHERE RELAYED TO DR LEBRON; SEE LABS AND ORDERS. HD CATH PLACED TO [facility] BY DR LEBRON AT 1900. PT TO HAVE HD TONIGHT; DR REDDY CONSULTED. AT 1900 PT RESTLESS AND ABLE TO FOLLOW SIMPLE COMMANDS. LEVOPHED AT 30MCG, VASOPRESSIN GTT, AMIO GTT, AND BICARB GTT INFUSING. BEDSIDE REPORT GIVEN TO ONCOMING RN'S.
[2020-03-09 21:07] LABS: Alanine Aminotransfer (ALT/SGP 66 U/L (12-78); Albumin, Blood 1.3 g/dL (3.4-5.0); Albumin/Globulin Ratio 0.6 (0.8-1.8); Alk Phos 160 U/L (50-136); Aspartate Aminotrans (AST/SGOT 169 U/L (12-37); Bilirubin, Indirect 0.9 mg/dL (0.1-0.7); Bilirubin, Total 2.9 mg/dL (0.1-1.0); Blood Urea Nitrogen 10 mg/dL (8-24); Bun/Creatinine Ratio 9.1 (12.0-20.0); CPK Creatine Kinase 287 U/L (26-193); Chloride, Blood 104 mmol/L (98-108); Globulin, Blood 2.2 g/dL (2.2-4.0); Glomerular Filtration Rate 52 (60-); Glucose, Blood 341 mg/dL (70-99); Phosphorus, Blood 4.4 mg/dL (2.5-4.9); Potassium, Blood 4.1 mmol/L (3.5-5.5); Sodium, Blood 137 mmol/L (136-145); Total Protein, Blood 3.5 g/dL (6.4-8.2); Uric Acid, Blood 6.8 mg/dL (2.6-6.0)
[2020-03-09 21:09] LABS: Anion Gap 24 mmol/L (6-16); CO2, Blood 9 mmol/L (21-32); Calcium, Blood 5.8 mg/dL (8.5-10.1)
[2020-03-09 21:24] LABS: Osmolality, Serum 295 mos/KG (275-300)
--- NOTE | 2020-03-09 21:25 | NUR ---
HD 1:1 NON-ROUTINE HOURS HEMODIALYSIS ORDERED BY DR REDDY FOR NEW START ICU PATIENT WITH CRITICAL ACIDOSIS WITH CO2 : 8 NEW R IJ CVC PLACED / CHECKED AND OK'D BY DR LEBRON DIALYSATE BICARB AT MAX SETTING OF 40 PER ORDERS. CVC ACCESSED EASILY. BLOOD FLOW 250 - 350 ML/MIN WITH VERY GOOD PRESSURES. 1L UF TARGET.
--- NOTE | 2020-03-09 22:00 | NUR ---
PT UPDATE: DIALYSIS INITIATED. VIKKI JACQUIE PLACED ON PT D/T PERSISTENT HYPOTHERMIA. AFTER A FEW MOMENTS, BP WAS UNABLE TO OBTAIN. SEVERAL ATTEMPTS TO OBTAIN BP W/ ELECTRONIC & MANUAL METHODS W/OUT RESOLVE. VIKKI DERIKER REMOVED. PRESSORS TITRATED ACCORDINGLY & SBP ABLE TO BE OBTAINED W/ DOPPLAR. PT THEN CONVERTED TO AFIB W/ RVR W/ HR 120s-140s. DISCUSSED CASE W/ LEBRON, ORDERS GIVEN TO INC AMNIODARONE GTT TO 1mg/min. GTT INCREASED ACCORDINGLY. SEE FLOWSHEET & VS DOCUMENTATION. PLC CONTROLS ENGINEER AWARE.
[2020-03-10 00:15] LABS: BASOPHILS ABSOLUTE AUTO 0.01 K/mm3 (0.00-0.23); BASOPHILS PERCENT AUTO 0 % (0-2); EOSINOPHILS PERCENT AUTO 0 % (0-6); Hematocrit 21.7 % (33.0-51.0); Hemoglobin 6.9 g/dL (11.5-16.0); IMMATURE GRAN ABSOLUTE AUTO 0.19 K/mm3 (0.00-0.10); IMMATURE GRAN PERCENT AUTO 1 % (0-1); LYMPHOCYTES ABSOLUTE AUTO 1.91 K/mm3 (0.84-5.20); LYMPHOCYTES PERCENT AUTO 12 % (21-46); MONOCYTES PERCENT AUTO 4 % (4-13); Mean Corpuscular HGB 27.7 pg (26.0-34.0); Mean Corpuscular HGB Conc 31.8 g/dL (31.5-36.5); Mean Platelet Volume 10.5 fL (9.1-12.4); NEUTROPHILS PERCENT AUTO 82 % (41-73); NRBC ABSOLUTE 0.13 K/mm3 (0.00-0.02); NRBC Auto 0.8 /100 WBC (0.0-0.2); Platelet Count 81 K/mm3 (150-400); RDW Coefficient Variation 17.4 % (11.7-14.2); RDW Standard Deviation 54.7 fL (35.1-46.3); Red Blood Cell Count 2.49 M/mm3 (3.80-5.20); White Blood Cell Count 15.91 K/mm3 (4.00-11.30)
[2020-03-10 00:19] LABS: Mean Corpuscular Volume 87 fL (80-100)
[2020-03-10 00:21] LABS: Base Excess Venous -9.6 mmol/L; Bicarbonate Venous 17.3 mmol/L (24.0-30.0); PO2 Venous 86.3 mmHg (38-42); pH Blood Venous 7.34 (7.34-7.37)
[2020-03-10 02:06] LABS: Anion Gap 22 mmol/L (6-16); Blood Urea Nitrogen 6 mg/dL (8-24); Bun/Creatinine Ratio 8.6 (12.0-20.0); CO2, Blood 16 mmol/L (21-32); Calcium, Blood 6.2 mg/dL (8.5-10.1); Chloride, Blood 102 mmol/L (98-108); Glomerular Filtration Rate >60 (60-); Glucose, Blood 321 mg/dL (70-99); Potassium, Blood 3.3 mmol/L (3.5-5.5); Sodium, Blood 140 mmol/L (136-145)
--- NOTE | 2020-03-10 02:45 | NUR ---
UPDATE: CALLED & UPDATED LEBRON ON PT's IMPROVING BP W/ MAPs>65 & EPINEPHRINE GTT TITRATED DOWN TO 5mcg/min. ALSO DISCUSSED PT's LAB RESULTS. NEW ORDERS GIVEN FOR 2units PRBCs NOW. CALENDER WIND UP TENDER AWARE.
--- NOTE | 2020-03-10 06:37 | NUR ---
SHIFT SUMMARY: PT REMAINS INTUBATED, SEDATED. VENT: AC 20/325, 5/35%. GTTs: PROPOFOL 40mcg/kg/min, EPINEPHRINE 15mcg/min, AMNIODARONE 1mg/min, BICARB 100ml/hr, VASOPRESSIN 0.04u/min, LEVOPHED 30mcg/min, 2nd unit PRBCs @ 300ml/hr. PT UNRESPONSIVE TO NOXIOUS STIMULI, HOWEVER SHE DOES BITE @ TOOTHETTE & WITHDRAW TO ORAL CARE. SEDATION VACATION GIVEN LAST NOC, PT AWOKE & WAS ABLE TO FOLLOW COMMANDS & TRACK STAFF ABOUT THE ROOM. WORSENING GENERALIZED EDEMA THROUGHOUT THE SHIFT, INCLUDING HOSSEIN SCLERA. BP HAS STABILIZED W/ SBP LOW 100s. PLAN TO DRAW AM & SEND OUT LABS AFTER BLOOD IS COMPLETE. BARRY @ BEDSIDE TO REASSESS PT, UPDATED ON PLAN FOR BLOOD DRAW & BARRY IS AGREEABLE. WILL CONTINUE TO MONITOR UNTIL REPORT OFF TO ONCOMING RN.
--- NOTE | 2020-03-10 07:15 | NUR ---
BEGINNING OF SHIFT Assumed care of pt at 0700. Bedside report received from Michaelle TRAN and Deana TRAN. Pt sedated with propofol at 40 mcg/kg/min. Ventilated through 7.5 cm ETT, 20 cm at the upper lip. Ventilator settings AC 20/325/5/35%. SpO2 90% or greater. Vasopressors include levophed 30 mcg/min, vasopressin 0.04 units/min, epinephrine 15 mcg/min. BP stable per NIBP. Pt also has amiodarone at 1 mg/min due to previous afib with RVR. Bicarb drip per orders. Pt has triple lumen PICC and dialysis catheter with pigtail for IV access. Pt currently sinus rhythm per monitor. High catheter draining scant amounts of urine.
[2020-03-10 08:45] LABS: BASOPHILS ABSOLUTE AUTO 0.02 K/mm3 (0.00-0.23); BASOPHILS PERCENT AUTO 0 % (0-2); EOSINOPHILS PERCENT AUTO 0 % (0-6); Hematocrit 26.1 % (33.0-51.0); Hemoglobin 8.6 g/dL (11.5-16.0); IMMATURE GRAN ABSOLUTE AUTO 0.16 K/mm3 (0.00-0.10); IMMATURE GRAN PERCENT AUTO 1 % (0-1); LYMPHOCYTES ABSOLUTE AUTO 1.13 K/mm3 (0.84-5.20); LYMPHOCYTES PERCENT AUTO 8 % (21-46); MONOCYTES ABSOLUTE AUTO 0.59 K/mm3 (0.16-1.47); MONOCYTES PERCENT AUTO 4 % (4-13); Mean Corpuscular HGB 30.2 pg (26.0-34.0); Mean Corpuscular Volume 92 fL (80-100); Mean Platelet Volume 11.7 fL (9.1-12.4); NEUTROPHILS ABSOLUTE AUTO 11.62 K/mm3 (1.96-9.15); NEUTROPHILS PERCENT AUTO 86 % (41-73); NRBC ABSOLUTE 0.29 K/mm3 (0.00-0.02); NRBC Auto 2.1 /100 WBC (0.0-0.2); Platelet Count 63 K/mm3 (150-400); RDW Standard Deviation 53.2 fL (35.1-46.3); Red Blood Cell Count 2.85 M/mm3 (3.80-5.20); White Blood Cell Count 13.52 K/mm3 (4.00-11.30)
[2020-03-10 08:57] LABS: Alanine Aminotransfer (ALT/SGP 78 U/L (12-78); Albumin, Blood 1.5 g/dL (3.4-5.0); Albumin/Globulin Ratio 0.9 (0.8-1.8); Alk Phos 92 U/L (50-136); Anion Gap 20 mmol/L (6-16); Bilirubin, Total 3.1 mg/dL (0.1-1.0); Blood Urea Nitrogen 7 mg/dL (8-24); Bun/Creatinine Ratio 7.6 (12.0-20.0); CO2, Blood 14 mmol/L (21-32); Chloride, Blood 98 mmol/L (98-108); Creatinine, Blood 0.92 mg/dL (0.40-1.00); Globulin, Blood 1.7 g/dL (2.2-4.0); Glomerular Filtration Rate >60 (60-); Glucose, Blood 465 mg/dL (70-99); Magnesium, Blood 1.5 mg/dL (1.6-2.4); Phosphorus, Blood 3.2 mg/dL (2.5-4.9); Potassium, Blood 3.8 mmol/L (3.5-5.5); Sodium, Blood 132 mmol/L (136-145); Total Protein, Blood 3.2 g/dL (6.4-8.2)
[2020-03-10 08:59] LABS: Aspartate Aminotrans (AST/SGOT 237 U/L (12-37); Calcium, Blood 5.5 mg/dL (8.5-10.1)
--- NOTE | 2020-03-10 09:00 | NUR ---
Dr Rose and Dr Henry in to see patient. Discussed that stat IR consult was placed due to CT results. Dr Teran updated by Dr Henry, Dr Teran in to see pt shortly afterwards. Plan for pt to go to laborer drying department emergently. H&H pending, Dr Rose states to administer 1 unit PRBCs regardless of result since patient is actively hemorrhaging.
--- NOTE | 2020-03-10 12:00 | NUR ---
Pt back from medical laboratory technician. BP stable, plan to start titrating pressors down. Pt has left femoral artery sheath in place, connected to pressure bag and transducer for invasive BP measurement. Unable to obtain noninvasive BP measurement. BLE equal in appearance. Both lower extremities are dusky with cyanotic toes. Thready, faint pedal and post tibial pulses palpated and verified with doppler. Insertion site for sheath is free of bruising, drainage, or hematoma. Pt has a nicholas patch and tegaderm covering venous access to right groin. Dry red drainage on patch, unchanged appearance compared to when pt departed from medical laboratory technician. Ventilator requirements increasing, Dr Teran aware. Goal SpO2 88% or greater per Dr Teran.
[2020-03-10 13:12] LABS: PCO2 Arterial 23.9 mmHg (35-45)
[2020-03-10 13:12] LABS: BASOPHILS ABSOLUTE AUTO 0.02 K/mm3 (0.00-0.23); BASOPHILS PERCENT AUTO 0 % (0-2); EOSINOPHILS PERCENT AUTO 0 % (0-6); Hematocrit 26.5 % (33.0-51.0); Hemoglobin 8.6 g/dL (11.5-16.0); IMMATURE GRAN ABSOLUTE AUTO 0.11 K/mm3 (0.00-0.10); IMMATURE GRAN PERCENT AUTO 1 % (0-1); LYMPHOCYTES ABSOLUTE AUTO 1.13 K/mm3 (0.84-5.20); LYMPHOCYTES PERCENT AUTO 9 % (21-46); MONOCYTES ABSOLUTE AUTO 0.73 K/mm3 (0.16-1.47); MONOCYTES PERCENT AUTO 6 % (4-13); Mean Corpuscular HGB 29.1 pg (26.0-34.0); Mean Corpuscular HGB Conc 32.5 g/dL (31.5-36.5); Mean Corpuscular Volume 90 fL (80-100); Mean Platelet Volume 9.9 fL (9.1-12.4); NEUTROPHILS ABSOLUTE AUTO 11.19 K/mm3 (1.96-9.15); NEUTROPHILS PERCENT AUTO 85 % (41-73); NRBC ABSOLUTE 0.48 K/mm3 (0.00-0.02); NRBC Auto 3.6 /100 WBC (0.0-0.2); Platelet Count 130 K/mm3 (150-400); RDW Coefficient Variation 16.7 % (11.7-14.2); Red Blood Cell Count 2.96 M/mm3 (3.80-5.20); White Blood Cell Count 13.18 K/mm3 (4.00-11.30)
[2020-03-10 13:30] LABS: Albumin, Blood 1.6 g/dL (3.4-5.0); Albumin/Globulin Ratio 0.9 (0.8-1.8); Bilirubin, Total 3.8 mg/dL (0.1-1.0); Bun/Creatinine Ratio 6.9 (12.0-20.0); Calcium, Blood 6.2 mg/dL (8.5-10.1); Creatinine, Blood 1.02 mg/dL (0.40-1.00); Globulin, Blood 1.7 g/dL (2.2-4.0); Magnesium, Blood 1.4 mg/dL (1.6-2.4); Phosphorus, Blood 3.7 mg/dL (2.5-4.9); Potassium, Blood 3.4 mmol/L (3.5-5.5); Total Protein, Blood 3.3 g/dL (6.4-8.2)
[2020-03-10 14:42] LABS: Prothrombin Time Results 24.5 Sec (9.7-11.5)
[2020-03-10 14:44] LABS: International Normalized Ratio 2.41
--- NOTE | 2020-03-10 17:00 | NUR ---
Addressed pt's blood sugar with Dr Teran. Provider states to start insulin drip. States that after 1700 lab draw, no additional BMP are necessary despite receiving insulin drip. Provider states to discontinue Solu-Cortef. Inquired about starting nutrition for patient, provider states to reassess and address nutrition tomorrow. Vasopressor requirements decreasing. Labile ventilator requirements. Discussed that pt had only 25 mL of urine output this shift. Pt's granddaughter in to visit pt for approx one hour. Updated by this RN, Dr Teran, and Dr Aragon. Both sites from are stable. Sedation interruption not performed due to pt being in critical condition with significantly increased ventilator requirements since start of shift (PEEP increased from 5-8, FiO2 increased from 35-70%) and activity limitation due to arterial sheath to left femoral artery. Propofol decreased from 40 mcg/kg/min to 30 mcg/kg/min, will continue to titrate down as patient tolerates. Pt previously hypothermic, Elizabethgger used for approx 5 hours to help patient achive normothermia. On standby at this time.
[2020-03-10 17:06] LABS: BASOPHILS ABSOLUTE AUTO 0.01 K/mm3 (0.00-0.23); BASOPHILS PERCENT AUTO 0 % (0-2); EOSINOPHILS PERCENT AUTO 0 % (0-6); Hematocrit 28.3 % (33.0-51.0); Hemoglobin 9.3 g/dL (11.5-16.0); IMMATURE GRAN ABSOLUTE AUTO 0.12 K/mm3 (0.00-0.10); IMMATURE GRAN PERCENT AUTO 1 % (0-1); LYMPHOCYTES ABSOLUTE AUTO 1.66 K/mm3 (0.84-5.20); LYMPHOCYTES PERCENT AUTO 12 % (21-46); MONOCYTES ABSOLUTE AUTO 0.76 K/mm3 (0.16-1.47); MONOCYTES PERCENT AUTO 6 % (4-13); Mean Corpuscular HGB 28.8 pg (26.0-34.0); Mean Corpuscular HGB Conc 32.9 g/dL (31.5-36.5); Mean Corpuscular Volume 88 fL (80-100); Mean Platelet Volume 10.1 fL (9.1-12.4); NEUTROPHILS ABSOLUTE AUTO 10.98 K/mm3 (1.96-9.15); NEUTROPHILS PERCENT AUTO 81 % (41-73); NRBC ABSOLUTE 0.66 K/mm3 (0.00-0.02); NRBC Auto 4.9 /100 WBC (0.0-0.2); Platelet Count 128 K/mm3 (150-400); RDW Coefficient Variation 17.1 % (11.7-14.2); RDW Standard Deviation 53.6 fL (35.1-46.3); Red Blood Cell Count 3.23 M/mm3 (3.80-5.20); White Blood Cell Count 13.53 K/mm3 (4.00-11.30)
--- NOTE | 2020-03-10 17:10 | NUR ---
Spiritual care note: Met with pt's grand-daughter at bedside. She tells me she is heartend that pt is showing signs of improvement. Still hopeful for more quality time. Provided encouragement and affirmation. I will remain available.
[2020-03-10 17:28] LABS: Bun/Creatinine Ratio 5.3 (12.0-20.0); Calcium, Blood 6.9 mg/dL (8.5-10.1); Creatinine, Blood 1.13 mg/dL (0.40-1.00); Potassium, Blood 3.9 mmol/L (3.5-5.5)
[2020-03-10 17:29] LABS: PCO2 Arterial 26.1 mmHg (35-45); PO2 Arterial 78.5 mmHg (80-100); pH Blood Arterial 7.26 (7.35-7.45)
--- NOTE | 2020-03-10 18:30 | NUR ---
Pt having difficulty maintaining SpO2 90% or greater. Dr Teran in room to reassess. Vent settings changed to AC 20/440/8/60%. This helped patient achieve SpO2 90% or greater. Shortly afterwards, BP dropped significantly. SBP 60s, MAP 40s. Epinephrine restarted and Dr Teran called to bedside. Pt placed supine. Shortly after epinephrine started, BP improved. Will continue to closely reassess.
--- NOTE | 2020-03-10 18:45 | NUR ---
SUMMARY Pt remains on 30 mcg/kg/min propofol. No increase in LOC noted. Levophed at 26 mcg/min. Epinephrine at 5 mcg/min. Vasopressin. Plan to maintain epinephrine and titrate levophed down if BP permits. Amiodarone off and discontinued. SR per monitor. Invasive BP reading stable. Unable to obtain NIBP. Insulin drip at 6 units/hr. CBG checks from venous access as pt's digits BUE and BLE are cyanotic and dusky and pt is severely edematous. Pt has weeping edema from previous IV sites in bilateral AC. Sites dressed with pink foam clover dressing. Sacral wound is having a large amount of drainage as well. Antifungal cream applied and dry flow placed underneath patient. Total 25 mL urine output this shift. Ventilator settings AC 20/440/8/60%. SpO2 90% or greater. OG tube clamped. Elizabethggmacario on patient but on standby as pt is now normothermic.
--- NOTE | 2020-03-10 21:46 | NUR ---
ASSUMED PT CARE FROM CHELSEA STANFORD AT 1900 PT INTUBATED AND SEDATED. VENT SETTINGS AC 20, VT 440, PEEP 8, FIO2 60%; BIOX >90%. PROPOFOL TITRATED FROM 30MCG/KG/MIN TO 20MCG/KG/MIN D/T PT BEING DIFFICULT TO AROUSE. LEVOPHED AT 26MCG/MIN, EPINEPHRINE AT 5MCG/MIN, AND VASOPRESSIN AT 0.04 UNITS/MIN. ARTERIAL LINE TO LEFT FEMORAL ARTERY; TRANSDUCER TO PHLEBOSTATIC AXIS THAT HAS BEEN ZERO'D. STABLE PRESSURES, SEE FLOWSHEET. INSULIN GTT AT 6 UNITS/HR WITH GLUCOSE 240'S. BICARB GTT AT 100MLS/HR. POTASSIUM CHLORIDE 20MEQ'S INFUSING AT 50MLS/HR. MEDINA CATHETER HAS MINIMAL URINE OUTPUT NOTED; 10CC IN UROMETER; DARK YELLOW. RIGHT FEMORAL SITE IS STABLE WITH NO OOZING OR HEMATOMA NOTED; SITE IS VISCOSITY TESTER. PT IS VERY EDEMATOUS WITH WEEPING NOTED FROM OLD IV PUNCTURE SITES AND OPEN AREA TO COCCYX. PT REMAINS VERY PALE WITH VERY FRAGILE SKIN. WILL CONTINUE TO MONITOR.
[2020-03-10 22:10] LABS: BASOPHILS ABSOLUTE AUTO 0.03 K/mm3 (0.00-0.23); BASOPHILS PERCENT AUTO 0 % (0-2); EOSINOPHILS PERCENT AUTO 0 % (0-6); Hematocrit 26.2 % (33.0-51.0); Hemoglobin 8.9 g/dL (11.5-16.0); IMMATURE GRAN ABSOLUTE AUTO 0.19 K/mm3 (0.00-0.10); IMMATURE GRAN PERCENT AUTO 1 % (0-1); LYMPHOCYTES ABSOLUTE AUTO 1.71 K/mm3 (0.84-5.20); LYMPHOCYTES PERCENT AUTO 12 % (21-46); MONOCYTES ABSOLUTE AUTO 0.77 K/mm3 (0.16-1.47); MONOCYTES PERCENT AUTO 6 % (4-13); Mean Corpuscular HGB 28.5 pg (26.0-34.0); Mean Corpuscular Volume 84 fL (80-100); Mean Platelet Volume 10.1 fL (9.1-12.4); NEUTROPHILS PERCENT AUTO 81 % (41-73); NRBC ABSOLUTE 0.99 K/mm3 (0.00-0.02); NRBC Auto 7.1 /100 WBC (0.0-0.2); Platelet Count 119 K/mm3 (150-400); RDW Coefficient Variation 17.2 % (11.7-14.2); RDW Standard Deviation 51.8 fL (35.1-46.3); Red Blood Cell Count 3.12 M/mm3 (3.80-5.20)
[2020-03-11 04:11] LABS: BASOPHILS ABSOLUTE AUTO 0.02 K/mm3 (0.00-0.23); BASOPHILS PERCENT AUTO 0 % (0-2); EOSINOPHILS PERCENT AUTO 0 % (0-6); Hematocrit 24.1 % (33.0-51.0); Hemoglobin 8.3 g/dL (11.5-16.0); IMMATURE GRAN ABSOLUTE AUTO 0.24 K/mm3 (0.00-0.10); IMMATURE GRAN PERCENT AUTO 2 % (0-1); LYMPHOCYTES ABSOLUTE AUTO 1.94 K/mm3 (0.84-5.20); LYMPHOCYTES PERCENT AUTO 14 % (21-46); MONOCYTES ABSOLUTE AUTO 1.13 K/mm3 (0.16-1.47); MONOCYTES PERCENT AUTO 8 % (4-13); Mean Corpuscular HGB 28.3 pg (26.0-34.0); Mean Corpuscular HGB Conc 34.4 g/dL (31.5-36.5); Mean Corpuscular Volume 82 fL (80-100); Mean Platelet Volume 10.7 fL (9.1-12.4); NEUTROPHILS ABSOLUTE AUTO 10.77 K/mm3 (1.96-9.15); NEUTROPHILS PERCENT AUTO 76 % (41-73); NRBC ABSOLUTE 1.54 K/mm3 (0.00-0.02); NRBC Auto 10.9 /100 WBC (0.0-0.2); Platelet Count 114 K/mm3 (150-400); RDW Coefficient Variation 17.1 % (11.7-14.2); Red Blood Cell Count 2.93 M/mm3 (3.80-5.20)
[2020-03-11 04:32] LABS: Albumin, Blood 1.5 g/dL (3.4-5.0); Anion Gap 18 mmol/L (6-16); Blood Urea Nitrogen 8 mg/dL (8-24); Bun/Creatinine Ratio 5.7 (12.0-20.0); CO2, Blood 18 mmol/L (21-32); Calcium, Blood 6.3 mg/dL (8.5-10.1); Chloride, Blood 98 mmol/L (98-108); Creatinine, Blood 1.41 mg/dL (0.40-1.00); Glomerular Filtration Rate 39 (60-); Glucose, Blood 165 mg/dL (70-99); Magnesium, Blood 1.6 mg/dL (1.6-2.4); Phosphorus, Blood 2.1 mg/dL (2.5-4.9); Potassium, Blood 3.8 mmol/L (3.5-5.5); Sodium, Blood 134 mmol/L (136-145)
--- NOTE | 2020-03-11 05:45 | NUR ---
END OF SHIFT SUMMARY PT REMAINS INTUBATED AND SEDATED. PROPOFOL AT 15 MCG/KG/MIN. PT ABLE TO OPEN EYES TO VERBAL STIMULI AND TRACK WITH HEAD/EYES; HOWEVER, UNABLE TO FOLLOW ANY COMMANDS. VENT SETTINGS AC 20, VT 440, PEEP 8, FIO2 35%; BIOX >90%. LEVOPHED AT 22MCG/MIN, EPINEPHINE AT 5MCG/MIN, VASOPRESSIN AT 0.04 UNITS/MIN, BICARB 150MEQ IN NS AT 100MLS/HR, INSULIN GTT AT 3 UNITS/HR FOR GOAL OF 140-180 BLOOD SUGARS; CURRENTLY PT HAS BEEN SUSTAINING AROUND 160'S. HD CATH TO RIGHT IJ. PICC LINE TO RIGHT UPPER ARM. ARTERIAL LINE TO LEFT FEMORAL SITE. MIDLINE TO LEFT UPPER ARM. PT REMAINS VERY EDEMATOUS T/O; WEEPING NOTED TO ANY OLD IV STICK AND/OR WOUND. PT CURRENTLY ON A DRY FLOW AND ALL DRESSINGS ARE IN PLACE. MEDINA CATHETER REMAINS PATENT AND DRAINING MINIMAL AMOUNTS TO GRAVITY; 75CC ACCOUNTED FOR THIS SHIFT. WILL CONTINUE TO MONITOR UNTIL REPORT IS HANDED OFF TO ONCOMING RN.
[2020-03-11 06:40] LABS: PO2 Arterial 72.5 mmHg (80-100)
--- NOTE | 2020-03-11 06:53 | NUR ---
DR. REDDY AT BEDSIDE NEW ORDERS TO RUN A STAT ABG AND CALL WITH RESULTS. CALLED WITH RESULTS WITH NEW ORDERS TO D/C BICARB GTT AND DRAW A STAT RENAL PANEL AT 11AM AND CALL WITH RESULTS BY NOON.
--- NOTE | 2020-03-11 07:15 | NUR ---
Assumed care of pt at 0700. Bedside report received from Deana TRAN. Pt alert. Opens eyes to verbal stimulus. Pt does not follow commands, no movement noted to extremities. No grimace or other nonverbal indications of pain. No gag. Cough present. Pt receiving propofol at 15 mcg/kg/min. Levophed at 22 mcg/min. Epinephrine at 5 mcg/min. Vasopressin running. Insulin drip at 3 mcg/min. CBG stable. HR 90s with rhythm resembling wandering atrial pacemaker. High catheter in place with urometer for hourly I&O monitoring. Temp probe in place, pt normothermic. BP monitioring through arterial line to left femoral artery. Site dressed with tegaderm CHG. No drainage. Minimal bruising. No hematoma. Pt also has previous venous access to right groin from IVC placement. [place]IST[place]. Bandaid placed so area does not receive powder when folds have baby powder applied. [place] foam bordered clover dressings to bilat AC and right mares where pt is oozing serosanguinous fluid, these dressings changed after site assessed. Ventilator settings AC 20/440/8/35%. SpO2 90% or greater.
[2020-03-11 09:10] LABS: HBSAG SCREEN Negative (Negative); HEP A AB, IGM Negative (Negative); HEP B CORE AB, IGM Negative (Negative)
--- NOTE | 2020-03-11 11:00 | NUR ---
VTE PROPHYLAXIS Discussed with Dr Teran. Considering that pt has DVT, SCD not appropriate. DIONNA not appropriate due to weeping edema and very high risk for skin breakdown. Chemical VTE prophylaxis not appropriate due to hemorrhage. Plan to continue with no VTE prophylaxis, noting that pt had IVC filter placed yesterday.
[2020-03-11 11:09] LABS: Hematocrit 22.3 % (33.0-51.0); Hemoglobin 7.9 g/dL (11.5-16.0)
[2020-03-11 11:11] LABS: PCO2 Arterial 26.5 mmHg (35-45); PO2 Arterial 51.6 mmHg (80-100); pH Blood Arterial 7.45 (7.35-7.45)
[2020-03-11 11:28] LABS: Albumin, Blood 1.4 g/dL (3.4-5.0); Anion Gap 16 mmol/L (6-16); Blood Urea Nitrogen 8 mg/dL (8-24); Bun/Creatinine Ratio 5.1 (12.0-20.0); CO2, Blood 19 mmol/L (21-32); Calcium, Blood 6.5 mg/dL (8.5-10.1); Chloride, Blood 96 mmol/L (98-108); Creatinine, Blood 1.56 mg/dL (0.40-1.00); Glomerular Filtration Rate 35 (60-); Glucose, Blood 138 mg/dL (70-99); Phosphorus, Blood 2.8 mg/dL (2.5-4.9); Potassium, Blood 3.8 mmol/L (3.5-5.5); Sodium, Blood 131 mmol/L (136-145)
--- NOTE | 2020-03-11 12:07 | NUR ---
Plan to start tube feeds today. One dose of furosemide given. Plan to manage BP with epinephrine and titrate levophed down as pt tolerates. Continue vasopressin as well. [address] Hylotn. ABG results discussed with Dr Teran. Ventilator settings AC 16/440/5/35%. SpO2 90% or greater. Plans for patient to receive dialysis. Discussed plan of care with dialysis nurse, Luis TRAN. Vasopressor requirements at this time Epinephrine 10 mcg/min Levophed 26 mcg/min Vasopressin
[2020-03-11 15:26] LABS: Hematocrit 21.5 % (33.0-51.0); Hemoglobin 7.5 g/dL (11.5-16.0)
--- NOTE | 2020-03-11 17:00 | NUR ---
Dialysis To ICU 4 for ordered hemodialysis per Dr Hylton. Report from Chandrika Melchor Rn, pt is intubated and sedated at this time. Request for fluid removal per intensiveist. Plan for fluid removal per PUF and hemodialysis. Unable to start tx due to pt's deteriorating condition. 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 Will hold dialysis at this time pending ct results and need for removal of contrast per HD.
--- NOTE | 2020-03-11 18:07 | NUR ---
Spiritual care note: Libby was moving head from [id number]. She did not respond to me. Provided prayer at bedside. No family present. [employer] Cle[employer] Machine Tender services will remain available.
--- NOTE | 2020-03-11 18:30 | NUR ---
ASSUMED PT CARE FROM CHELSEA STANFORD AT 1815 LEFT FOR EXPERIMENTAL TECHNICIAN AT 1833. PT ON TRANSPORT MONITOR. LEVOPHED REMAINS AT 26MCG/MIN, EPINEPHRINE AT 10MCG/MIN, VASOPRESSIN 0.04 UNITS/MIN, PROPOFOL AT 10MCG/KG/MIN. ARTERIAL LINE REMAINS IN PLACE WITH PRESSURES SYSTOLIC 120-130'S. STOPPED TUBE FEEDING FOR EXPERIMENTAL TECHNICIAN TRANSPORT. PICC LINE TO RIGHT UPPER ARM, MIDLINE TO LEFT UPPER ARM; BOTH PATENT. PT REMAINS UNRESPONSIVE; MOVES HEAD BACK AND FORTH, AND OCCASIONALLY OPENS EYES, BUT NOTHING PURPOSEFUL. THEREFORE, RESTRAINTS REMAIN OFF AT THIS TIME. MEDINA CATHETER PATENT AND DRAINING DARK, YELLOW URINE TO GRAVITY; MINIMAL OUTPUT NOTED. PLAN IS TO DIALYZE UPON RETURN FROM EXPERIMENTAL TECHNICIAN.
--- NOTE | 2020-03-11 18:47 | NUR ---
Patient HGB slowly trending downward. For this reason, 1 unit PRBC transfusion started. Pt taken for CTA abodomen and pelvis to r/o continued bleed. Decision made to take pt back to recyclable materials collector to evaluate if any additional embolization can be performed. Plans for patient to have dialysis after procedure. Pt has departed to recyclable materials collector with Deana TRAN at 1820. BP stable per art line. Insulin off. Levophed at 26 mcg/min. Epinephrine 10 mcg/min. Vasopressin. Propofol down to 10 mcg/kg/min. SR per monitor. Vent settings AC 16/440/5/40%.
--- NOTE | 2020-03-11 20:35 | NUR ---
DIALYSIS CALLED BACK IN TO DO TX ON PT. SHE WENT TO IMAGING (HAD MORE CONTRAST) AND WAITER/WAITRESS TAVERN. INFORMED THAT SHE IS BACK IN HER ROOM AND READY FOR TX.
--- NOTE | 2020-03-11 21:30 | NUR ---
RETURNED FROM LOCAL TANKER TRUCK DRIVER AT 2004 RIGHT FEMORAL ARTERY ACCESSED WITH COILS PLACED IN THE RIGHT INTERNAL ILIAC ARTERY. FULL BED BATH PERFORMED UPON RETURN FROM LOCAL TANKER TRUCK DRIVER. DRESSING TO RIGHT FEMORAL SITE CHANGED D/T OOZING NOTED; STERILE TECHNIQUE MAINTAINED WITH NO CHG TEGADERM PLACED. ANGIOSEAL CLOSURE DEVICE WAS USED; SITE REMAINS STABLE. DRESSING CHANGED TO LEFT FEMORAL SITE WHERE ARTERIAL LINE IS CONNECTED. SEE FLOWSHEET FOR VASOPRESSOR TITRATIONS. 2104 DIALYSIS STARTED
[2020-03-11 21:38] LABS: Hematocrit 22.6 % (33.0-51.0); Hemoglobin 7.8 g/dL (11.5-16.0)
--- NOTE | 2020-03-11 21:57 | NUR ---
DR. LEBRON UPDATE GIVEN TO DR. LEBRON REGARDING INCREASE IN PRESSORS ONCE DIALYSIS STARTED. SBP'S 60'S WITH MAPS 40-50'S. INFORMED HIM ALL PRESSORS WERE MAXED OUT AND THAT DIALYSIS NURSE WAS CALLING DR. REDDY FOR ALBUMIN ORDERS. INFORMED DR. LEBRON REGARDING RESULTS FROM H&H WITH NEW ORDERS TO TRANSFUSE ONE UNIT OF PRBC'S.
--- NOTE | 2020-03-12 00:18 | NUR ---
DIALYSIS TRIED TO DO A 1 HOUR PUF TO GET EXTRA FLUID OFF, BUT COULDN'T MAINTAIN BP. TRIED ALBUMIN, ALSO ADMINISTERED 1 PRBC WHICH DID HELP A SHORT TIME. WHEN PROPOFEL GOING, BP DROPPED. WHEN IT WAS OFF OR DECREASED, SHE THRASHED AROUND AND CATH WOULDN'T RUN. BFR SLOWLY DECREASED TO 200 ML/ MIN. FROM 350. THE BP RAN FROM 50'S TO 112. DEPENDING ON THE MEDS BEING USED. HAD TO KEEP DECREASING GOAL. HOSPITALIST SAID TO DC TX WITH 12 MIN LEFT DUE HYPTENSION.
[2020-03-12 04:27] LABS: Hematocrit 25.6 % (33.0-51.0); Hemoglobin 8.7 g/dL (11.5-16.0)
[2020-03-12 04:29] LABS: PO2 Arterial 91.6 mmHg (80-100); pH Blood Arterial 7.44 (7.35-7.45)
[2020-03-12 04:50] LABS: Albumin, Blood 1.8 g/dL (3.4-5.0); Anion Gap 19 mmol/L (6-16); Blood Urea Nitrogen 8 mg/dL (8-24); Bun/Creatinine Ratio 5.4 (12.0-20.0); CO2, Blood 16 mmol/L (21-32); Calcium, Blood 6.4 mg/dL (8.5-10.1); Chloride, Blood 95 mmol/L (98-108); Creatinine, Blood 1.48 mg/dL (0.40-1.00); Glomerular Filtration Rate 37 (60-); Glucose, Blood 174 mg/dL (70-99); Magnesium, Blood 1.6 mg/dL (1.6-2.4); Phosphorus, Blood 3.1 mg/dL (2.5-4.9); Potassium, Blood 4.4 mmol/L (3.5-5.5); Sodium, Blood 130 mmol/L (136-145)
--- NOTE | 2020-03-12 06:52 | NUR ---
END OF SHIFT SUMMARY INTUBATED/SEDATED. VENT SETTINGS AC 16, VT 440, PEEP 5, FIO2 70%. PROPOFOL AT 15MCG/KG/MIN. LEVOPHED AT 20MCG/MIN, VASOPRESSIN 0.04 UNITS/MIN. EPINEPHRINE HAS REMAINED OFF AFTER DIALYSIS; SEE FLOWSHEET. ARTERIAL LINE TO LEFT GROIN; DRESSING CHANGED T/O NIGHT D/T MOISTURE AND DRESSING LIFTING. RIGHT FEMORAL SITE REMAINS WITH CHG TEGADERM IN PLACE; NO OOZING OR HEMATOMA NOTED. PICC LINE TO RIGHT UPPER ARM. MIDLINE TO LEFT UPPER ARM. TRIALYSIS CATH TO RIGHT IJ WITH ECCHYMOSIS NOTED AROUND INSERTION SITE DOWN TO POSTERIOR RIGHT SHOULDER. PT REMAINS EDEMATOUS T/O; WEEPING. DRESSINGS REMAIN INTACT TO ALL OPEN AREAS EXCEPT BUTTOCKS. BARRIER CREAM APPLIED AFTER BM. DRY FLOW REMAINS IN PLACE. TUBE FEEDING REMAINS AT GOAL OF 10CC/HR; PIVOT 1.5. NO RESIDUALS NOTED THIS SHIFT. MEDINA CATHETER REMAINS PATENT AND DRAINING TO GRAVITY; 175CC NOTED THIS SHIFT. DR. REDDY CAME BY THIS MORNING AND STATED PT MAY HAVE DIALYSIS AGAIN TODAY. REPORT HANDED OFF TO CHELSEA STANFORD
--- NOTE | 2020-03-12 07:15 | NUR ---
Assumed care of pt at 0700. Bedside report received from Deana TRAN. Pt sedated with propofol at 15 mcg/kg/min. Levophed at 20 mcg/min. Vasopressin on. Epinephrine off. BP stable per art line. Ventilator settings AC 16/440/5/50%. SpO2 90% or greater. TF per OG tube at goal rate. Yellow urine draining from High catheter. Red secretions per mouth.
[2020-03-12 10:04] LABS: Mean Platelet Volume 12.9 fL (9.1-12.4); Platelet Count 56 K/mm3 (150-400)
[2020-03-12 10:05] LABS: International Normalized Ratio 2.47; Prothrombin Time Results 25.1 Sec (9.7-11.5)
--- NOTE | 2020-03-12 10:13 | NUR ---
Dr Mckeon in to see patient. Discussed pt's bloody oral secretions as well as new onset red urine. PT/INR, fibrinogen, and platelet count pending. Pt currently receiving hemodialysis. Levophed currently 26 mcg/min.
--- NOTE | 2020-03-12 10:55 | NUR ---
Pt's blood pressure not responding well to dialysis. Currently on 30 mcg/min levophed. Epinephrine 20 mcg/min. Vasopressin. Propofol off.
--- NOTE | 2020-03-12 14:21 | NUR ---
DIALYSIS DR REDDY SAID TO GO AHEAD AND RUN PT AN EXTRA HOUR FOR MORE FLUID.
[2020-03-12 14:35] LABS: Hematocrit 16.3 % (33.0-51.0); Hemoglobin 5.6 g/dL (11.5-16.0)
--- NOTE | 2020-03-12 14:41 | NUR ---
Dialysis complete. During dialysis, pt received 2 bottles of albumin, 1 unit platelets, 2 units FFP per dialysis nurse. This RN administered one unit of cryoprecipitate. While receiving blood products, patient's BP stabilized and vasopressors were decreased. Currently levophed 20 mcg/min. Vasopressin. Epinephrine is off. H&H obtained, criticially low. Discussed with Dr Mckeon. Plan to transfuse 2 units PRBC. Pt bleeding into oden, ETT, and killian blood per mouth with oral care and repositioning. Dr Mckeon aware. Pt placed back into restraints. Pt moving both arms. While this RN was performing oral care, patient grabbed suction tubing and pulled suction away from mouth. Pt also turning head away from this RN to avoid oral care. Pt still does not follow commands. Sedation increased for patient comfort, especially since BP now allows this. Propofol at 35 mcg/kg/min.
[2020-03-12 15:05] LABS: International Normalized Ratio 1.73
[2020-03-12 15:10] LABS: Prothrombin Time Results 17.9 Sec (9.7-11.5)
--- NOTE | 2020-03-12 18:32 | NUR ---
SUMMARY At this time, pt is sedated with 35 mcg/kg/min propofol. This is an increase from the 15 mcg/kg/min at beginning of shift. Reason for this increase is because pt was constantly moving head back and forth, putting tension on ventilator tubing. Additionally, pt was moving hands up to mouth purposefully (she pulled suction tubing away from mouth during oral care) and was placed back in restraints because she is at risk for self-extubation. Pt is having bloody secretions from mouth, constantly. Additionally, pt is having bloody secretions per ETT and oden catheter. Pt is having bloody drainage from right mares where she had skin cancer removed as an outpatient. Pt is having large amounts of serosanguinous drainage from PICC site, art line site, right groin post femoral artery access for IR procedure on 03/11, sacral wounds, and bilateral AC where she had peripheral IVs removed several days ago. Right groin has Mextra superabsorbant pad to right groin (dressed with Tegaderm CHG at beginning of shift but dressing eventually saturated from drainage). Mextra superabsorbant pads to bilateral ACs, dressed with kerlex and pink clover border dressings were saturated despite being changed this AM. Art line and PICC line dressings changed this shift. Sacral area LUMBER BEARER with barrier cream, baby powder and Max Absorb pad underneath. Other than large amounts of serosanguinous drainage and moderate bruising, art line site in left groin and angioseal site to right groin are unremarkable. No hematoma palpable. BLE equal in assessment with dusky toes and pulses identifyable by doppler only. Pt has large amount of bruising to right lateral abdomen and flank, consistent with prior bleed. This bruising was discussed with Dr Mckeon. In totality, pt has received 2 unit PRBC, 2 unit FFP, 1 unit cryoprecipitate, and 1 unit platelets this shift. Pt will receive additional unit FFP with current unit of blood is done transfusing. Ventilator settings AC 16/440/5/50% FiO2. Lungs coarse t/o. Moderate amounts of bloody laurent secretions per ETT. SpO2 probe changed from nare to forehead.
[2020-03-12 21:24] LABS: Hematocrit 18.7 % (33.0-51.0); Hemoglobin 6.6 g/dL (11.5-16.0)
[2020-03-12 21:33] LABS: International Normalized Ratio 1.56; Prothrombin Time Results 16.3 Sec (9.7-11.5)
--- NOTE | 2020-03-12 21:40 | NUR ---
LAB RESULTS DR. CAMPOVERDE NOTIFIED OF H+H AND PT/INR RESULTS- ORDER GIVEN TO TRANSFUSE 2 UNITS PRBCs AND 1 UNIT FFP.
[2020-03-13 05:04] LABS: PCO2 Arterial 29.4 mmHg (35-45); pH Blood Arterial 7.53 (7.35-7.45)
--- NOTE | 2020-03-13 06:31 | NUR ---
SHIFT SUMMARY REMAINS INTUBATED- AC 16, TV 440, PEEP 5, FIO2 50%. RR 16-20. SEDATED WITH PROPOFOL @ 35MCG/KG/MIN. PT OCCASIONALLY OPENS EYES AND MOVES UPPER EXTREMITIES SPONTANEOUSLY. WITHDRAWS LOWER EXTREMITIES SLIGHTLY TO NOXIOUS STIMULI. NOT FOLLOWING COMMANDS. BILATERAL SOFT WRIST RESTRAINTS IN PLACE TO PROTECT TUBES/LINES. MONITOR SHOWS SR WITH OCCASIONAL PVCs, RATE 60s. THIS AM RATE DECREASED TO 50s. LEVOPHED BETWEEN 3-8MCG/MIN DURING SHIFT TO MAINTAIN MAP >65. LEVOPHED IS NOW AT 3MCG/MIN. VASOPRESSIN AT 0.04UNITS/MIN T/O SHIFT- ON STANDBY THIS AM AT 0615. PIVOT 1.5 AT GOAL RATE OF 10CC/HR- RESIDUALS 0-10CC. INCONTINENT OF LOOSE, WATERY STOOL X 1. RIG TRIALYSIS CATH INTACT. SHERLY PICC LINE NOTED. RADHA POWERGLIDE NOTED. LEFT FEMORAL ARTERIAL LINE IN PLACE- DRSG CHANGED X 1. PT WITH WEEPING EDEMA T/O. SCATTERED BLISTERS AND EXCORIATED AREAS NOTED. MEDINA PATENT AND DRAINING BLOODY URINE. PT RECEIVED 2 UNITS PRBC AND 2 UNITS FFP THIS SHIFT. AM LABS ARE PENDING. WILL REPORT TO ONCOMING RN WHEN AVAILABLE.
[2020-03-13 06:38] LABS: BASOPHILS ABSOLUTE AUTO 0.01 K/mm3 (0.00-0.23); BASOPHILS PERCENT AUTO 0 % (0-2); EOSINOPHILS ABSOLUTE AUTO 0.01 K/mm3 (0.00-0.68); EOSINOPHILS PERCENT AUTO 0 % (0-6); Hematocrit 20.7 % (33.0-51.0); Hemoglobin 7.5 g/dL (11.5-16.0); IMMATURE GRAN ABSOLUTE AUTO 0.06 K/mm3 (0.00-0.10); IMMATURE GRAN PERCENT AUTO 1 % (0-1); LYMPHOCYTES PERCENT AUTO 12 % (21-46); MONOCYTES ABSOLUTE AUTO 0.43 K/mm3 (0.16-1.47); MONOCYTES PERCENT AUTO 7 % (4-13); Mean Corpuscular HGB 30.1 pg (26.0-34.0); Mean Corpuscular HGB Conc 36.2 g/dL (31.5-36.5); Mean Corpuscular Volume 83 fL (80-100); Mean Platelet Volume 11.2 fL (9.1-12.4); NEUTROPHILS ABSOLUTE AUTO 5.25 K/mm3 (1.96-9.15); NEUTROPHILS PERCENT AUTO 80 % (41-73); NRBC ABSOLUTE 0.46 K/mm3 (0.00-0.02); RDW Coefficient Variation 15.9 % (11.7-14.2); Red Blood Cell Count 2.49 M/mm3 (3.80-5.20); White Blood Cell Count 6.56 K/mm3 (4.00-11.30)
[2020-03-13 06:43] LABS: Platelet Count 46 K/mm3 (150-400)
[2020-03-13 06:46] LABS: Anion Gap 15 mmol/L (6-16); Blood Urea Nitrogen 9 mg/dL (8-24); Bun/Creatinine Ratio 5.5 (12.0-20.0); CO2, Blood 23 mmol/L (21-32); Chloride, Blood 96 mmol/L (98-108); Creatinine, Blood 1.65 mg/dL (0.40-1.00); Glomerular Filtration Rate 33 (60-); Glucose, Blood 141 mg/dL (70-99); International Normalized Ratio 1.58; Magnesium, Blood 1.6 mg/dL (1.6-2.4); Phosphorus, Blood 2.7 mg/dL (2.5-4.9); Potassium, Blood 3.6 mmol/L (3.5-5.5); Prothrombin Time Results 16.5 Sec (9.7-11.5); Sodium, Blood 134 mmol/L (136-145)
--- NOTE | 2020-03-13 07:30 | NUR ---
PT RECEIVED FROM CHELSEA ESCOBAR. PT ON VENTILATOR 16,440,5,50%, LEVOPHED AT 3MCG/MIN, VASOPRESSIN OFF DURING REPORT,RESUMED R/T BP'S IN THE 80'S SYSTOLIC, HEART RATE VARYING INTO BRADYCARDIA, WITH SOME ARRHYTHMIA, PROPOFOL @35MCG/KG/MIN, DIALYSIS CATH IN PLACE,PICC LINE IN SHERLY,ART LINE IN LEFT GROIN, RIGHT GROIN OOZING,DRESSING REPLACED,HANDS AND FEET WITH PITTING EDEMA,MEDINA DRAINING CLEAR YELLOW WITH BLOOD STREAKS,RECTUM DRAINING SEROUSANGUINOUS ONTO SHEETS, RIGHT UPPER INNER ARM WITH SKIN TEAR, RIGHT UPPER THIGH WITH BLISTERY SKIN,PLATELETS STARTED PER ORDER.CONTINUE TO OBSERVE FOR CHANGES.
--- NOTE | 2020-03-13 09:52 | NUR ---
DR. CAMPOVERDE IN TO SEE PT. MD MADE AWARE THAT RIGHT PUPIL IS LARGER THAN THE LEFT AND UPDATED TO CURRENT VS. HR TRENDING 40-50'S. VASOPRESSIN PLACED ON STANDBY MAP IN THE 90'S. LEVOPHED TITRATED DOWN TO 1 MCG/MIN, AND PROPOFOL OFF TO FURTHER ASSES NEURO STATUS. IF PT DOES NOT AROUSE, WILL ORDER STAT CT SCAN OF HEAD.
--- NOTE | 2020-03-13 10:26 | NUR ---
PT CONTINUES WITH THE PROPOFOL/LEVOPHED/VASOPRESSIN OFF, WITH NO RESPONSE TO STERNAL RUB. PT MOVES HEAD SLIGHTLY TO PAINFUL FINGERNAIL PINCH. PT'S PUPILS REMAIN UNEQUAL,ORDERED HEAD CT SCAN. PT REMAINS WITHOUT RESTRAINTS AT THIS TIME.
[2020-03-13 12:29] LABS: Hematocrit 19.9 % (33.0-51.0)
[2020-03-13 12:35] LABS: International Normalized Ratio 1.6; Prothrombin Time Results 16.7 Sec (9.7-11.5)
--- NOTE | 2020-03-13 12:59 | NUR ---
1158-PATIENT TO CT 1227-RETURNED TO ROOM PT MOVING HEAD, PT MOVING LEFT ARM, NOT FOLLOWING COMMANDS, LOOKING AROUND, NOT TO LOUD NOISE OR VERBAL STIMULI. PT HAD BOWEL MOVEMENT, TURNED TO CLEAN. PT'S ART LINE DRESSING CHANGED/BLOOD PRESSURE RETURN TO SBP 70'S, LABILE, LEVOPHED ON AND BEING TITRATED, VASOPRESSIN PUT BACK ON, PROPOFOL IS AT 35MCG/KG/MIN, WILL TITRATE WELL.
--- NOTE | 2020-03-13 15:45 | NUR ---
DIALYSIS STARTED ON PATIENT, ORDERS FOR 1 UNIT OF PRBC'S AND FFP, WILL BE GIVEN DURING DIALYSIS. MAP LABILE, LESS THAN 60 WITHIN MOMENTS OF STARTING, LEVOPHED TITRATED NECESSARY, ADDING EPINEPHRINE GTT TO MAINTAIN BP AND MAP>60.
--- NOTE | 2020-03-13 16:53 | NUR ---
PT HAVING TROUBLE WITH KEEPING HER MAP>65, DR. CAMPOVERDE IN PT ROOM, EPINEPHRINE @10MCG/MIN, LEVOPHED @ 30 MCG/MIN, VASOPRESSIN @0.04U/MIN, PROPOFOL DOWN TO 20 MCG/KG/MIN. PT WITH EVIDENCE OF SOME MOTTLING OF LEFT LEG, THIGH TO KNEE, EXTREMITIES REMAIN COLD PRIOR TO DIALYSIS. FAMILY MEMBER IN ROOM, NO CHANGES IN PATIENT NEURO STATUS, PUPILS REMAIN UNEQUAL, PT REMAINS UNRESTRAINED.
--- NOTE | 2020-03-13 17:49 | NUR ---
DURING DIALYSIS, SIMIN RODRIGUEZ" THE FAMILY CALLS HER, HAS CONTINUED TO HAVE BLOOD PRESSURE ISSUES. SHE IS ON VASOPRESSIN @ 0.04U/MIN, LEVOPHED @ 30MCG/MIN EPINEPHRINE @ 10 MCG/MIN, PROPOFOL @ 20MCG/KG/MIN. TUBE FEEDING CONTINUES AT 10ML/HR WITH 30ML FLUSHES Q4HR. MEDINA WITH 250ML OUT, INCONTINENT OF STOOL X 2 SKIN IS FRAGILE, TEARS EASILY, WEEPS SEROUS FLUID, MULTIPLE AREAS OF BREAKDOWN AND ATTEMPTS TO PROTECT SKIN, PT'S PUPILS REMAIN UNEQUAL,REACTIVE, SEDATED, ON THE VENTILATOR @ 16/440/5/50%
[2020-03-13 18:28] LABS: Hematocrit 28.4 % (33.0-51.0); Hemoglobin 9.9 g/dL (11.5-16.0)
--- NOTE | 2020-03-13 18:30 | NUR ---
HEMODIALYSIS COMPLETED. PT INCONTINENT OF STOOL. WHILE GIVING PT A BATH, NOTED THAT LEFT FEMORAL A-LINE DRESSING WAS SATURATED WITH SEROSANGUINOUS FLUID. WHEN DRESSING REMOVED, NOTED THAT THE REANNA WAS BOTH KINKED AND WITHDRAWN FROM THE INSERTION SITE. BLOOD WAS SQUIRTING OUT AROUND THE REANNA CATHETER. ULTIMATELY, THE A-LINE WAS DISCONTINUED. MANUAL PRESSURE APPLIED-WITH DIFFICULTY ACHIEVING HEMOSTATIS-DUE TO DIC. FEMSTOP PLACED AND HEMOSTATIS ACHIEVED. SBP PER DOPPLER 70'S. LEVOPHED TITRATED UP TO 25 MCG/MIN. DR. CAMPOVERDE NOTIFIED. PT FAMILY HAD DISCUSSED WITH (EARLIER TODAY) DR. CAMPOVERDE POSSIBILITY OF WITHDRAWL OF CARE IN THE AM IF NO IMPROVEMENT. PT GRANDDAUGHTER RACHEL NOTIFED THAT PT BP VERY LOW AND REQUIRING SUBSTANTIAL PRESSOR SUPPORT.
[2020-03-13 18:43] LABS: International Normalized Ratio 1.38; Prothrombin Time Results 14.5 Sec (9.7-11.5)
--- NOTE | 2020-03-13 19:00 | NUR ---
ASSUMED CARE ASSUMED CARE OF PATIENT. PT REMAINS INTUBATED. PROPOFOL INFUSING AT 20MCG/KG/MIN. LEVOPHED INFUSING @ 25MCG/MIN AND VASOPRESSIN @ 0.04UNITS/MIN. LAST PRESSURE OBTAINED WAS 60/DOPPLER. FEM-STOP TO LEFT GROIN. LEFT LOWER ABDOMEN IS FIRM. COLOR PALE. SKIN IS COOL. FAMILY IS ON THEIR WAY AT THIS TIME AND WILL MAKE DECISION ON WHETHER OR NOT TO CONTINUE TREATMENT. HR 90s. NSR WITH PVCs. TUBE FEEDING CONTINUES AT GOAL RATE OF 10CC/HR. MEDINA PATENT.
--- NOTE | 2020-03-13 19:49 | NUR ---
EXTUBATION FAMILY AT BEDSIDE AND IS READY TO EXTUBATE PATIENT. PT MEDICATED WITH MS 4MG IV AND ATIVAN 1MG IV AT 1946 FOR COMFORT. EXTUBATED TO RA. RESPIRATIONS EVEN AND UNLABORED UPON EXTUBATION. HR 90s.
--- NOTE | 2020-03-13 19:53 | NUR ---
1946 pt extubated to room air for comfort care per dr abbott, rn yissel at bedside
--- NOTE | 2020-03-14 05:40 | NUR ---
PT AT 0421, MONITOR SHOWS BRADYCARDIA WITH HEART [id number]. AT 0525, MONITOR SHOWS ASYSTOLE- PT WITHOUT PULSE AND WITHOUT RESPIRATION. GRANDDAUGHTER GINGER NOTIFED AT 0527. DR. ABARCA NOTIFIED AT 0531.
== END 2020-03-14 05:25 | DRG 853 ==
LOC: ER 18:57 → ICUE 23:51 → ICUW 23:51 → ICUE 03-06 00:28
PROVIDERS: Emergency Medicine; Internal Medicine; Internal Medicine Critical Care Medicine; Internal Medicine Nephrology; Pharmacist; Student in an Organized Health Care Education/Training Program; ADMIT Family Medicine
PROC: 02HV33Z Insertion of Infusion Device into Superior Vena Cava, Percutaneous Approach (ICD-10-PCS; principal; 2020-03-06)
PROC: 3E043XZ Introduction of Vasopressor into Central Vein, Percutaneous Approach (ICD-10-PCS; 2020-03-06)
PROC: 5A1D70Z Performance of Urinary Filtration, Intermittent, Less than 6 Hours Per Day (ICD-10-PCS; 2020-03-09)
PROC: 0BH18EZ Insertion of Endotracheal Airway into Trachea, Via Natural or Artificial Opening Endoscopic (ICD-10-PCS; 2020-03-09)
PROC: 5A09357 Assistance with Respiratory Ventilation, Less than 24 Consecutive Hours, Continuous Positive Airway Pressure (ICD-10-PCS; 2020-03-09)
PROC: 06H03DZ Insertion of Intraluminal Device into Inferior Vena Cava, Percutaneous Approach (ICD-10-PCS; 2020-03-10)
PROC: 04LE3ZZ Occlusion of Right Internal Iliac Artery, Percutaneous Approach (ICD-10-PCS; 2020-03-10)
PROC: 04LE3ZZ Occlusion of Right Internal Iliac Artery, Percutaneous Approach (ICD-10-PCS; 2020-03-11)
PROC: 5A1D70Z Performance of Urinary Filtration, Intermittent, Less than 6 Hours Per Day (ICD-10-PCS; 2020-03-11)
PROC: 5A1D70Z Performance of Urinary Filtration, Intermittent, Less than 6 Hours Per Day (ICD-10-PCS; 2020-03-12)
PROC: 30233K1 Transfusion of Nonautologous Frozen Plasma into Peripheral Vein, Percutaneous Approach (ICD-10-PCS; 2020-03-13)
PROC: 30233N1 Transfusion of Nonautologous Red Blood Cells into Peripheral Vein, Percutaneous Approach (ICD-10-PCS; 2020-03-13)
PROC: 5A1D70Z Performance of Urinary Filtration, Intermittent, Less than 6 Hours Per Day (ICD-10-PCS; 2020-03-13)
PROC: 5A1955Z Respiratory Ventilation, Greater than 96 Consecutive Hours (ICD-10-PCS; 2020-03-13)
DX: A41.9 Sepsis, unspecified organism (principal); R65.21 Severe sepsis with septic shock; I26.99 Other pulmonary embolism without acute cor pulmonale; J96.01 Acute respiratory failure with hypoxia; K66.1 Hemoperitoneum; E87.2 Acidosis; N17.9 Acute kidney failure, unspecified; C25.9 Malignant neoplasm of pancreas, unspecified; N39.0 Urinary tract infection, site not specified; E87.1 Hypo-osmolality and hyponatremia; I82.411 Acute embolism and thrombosis of right femoral vein; Z51.5 Encounter for palliative care; F20.9 Schizophrenia, unspecified; Z66 Do not resuscitate; Z98.84 Bariatric surgery status; Z87.891 Personal history of nicotine dependence; E86.0 Dehydration; N18.30 Chronic kidney disease, stage 3 unspecified; K21.9 Gastro-esophageal reflux disease without esophagitis; F41.8 Other specified anxiety disorders; M81.0 Age-related osteoporosis without current pathological fracture; K76.0 Fatty (change of) liver, not elsewhere classified; E03.9 Hypothyroidism, unspecified; E87.6 Hypokalemia; E78.5 Hyperlipidemia, unspecified; I48.91 Unspecified atrial fibrillation; D64.9 Anemia, unspecified; R57.8 Other shock; H21.569 Pupillary abnormality, unspecified eye; S32.591D Other specified fracture of right pubis, subsequent encounter for fracture with routine healing; Y92.9 Unspecified place or not applicable; I82.461 Acute embolism and thrombosis of right calf muscular vein; Z78.1 Physical restraint status
CPT/HCPCS: 31500; 31720; 36246; 36247; 36415; 36430; 36569; 36600; 37191; 37244; 51703; 70450; 71045; 71046; 71260; 74177; 75625; 75716; 75774; 76937; 77080; 80048; 80053; 80069; 80074; 80076; 80162; 80202; 80400; 81001; 82330; 82533; 82550; 82803; 82947; 83605; 83735; 83880; 83930; 84100; 84145; 84439; 84443; 84481; 84484; 84550; 85007; 85014; 85018; 85025; 85027; 85049; 85379; 85384; 85610; 85730; 86140; 86301; 86317; 86850; 86900; 86901; 86923; 87015; 87040; 87045; 87046; 87086; 87116; 87147; 87205; 87206; 87493; 87899; 93005; 93010; 93306; 93970; 94002; 94003; 94660; 96360; 99152; 99153; 99285-25; A9270; C1751; C1760; C1769; C1887; C1894; C9113; J0171; J0282; J0610; J0692; J0834; J0881; J1160; J1644; J1650; J1720; J1815; J1885; J1940; J2060; J2250; J2270; J2370; J2405; J2543; J2704; J3010; J3370; J3475; J3480; J7030; J7040; J7042; J7050; J7060; J7070; J7120; P9012; P9016; P9035; P9046; P9059; Q9967